=== PATIENT | male | born 1945 | race Caucasian/White ===

== ENCOUNTER 2023-09-25 13:46 | Emergency (ER) | payer MEDICARE, BC, OTHER, SELFPAY ==
[2023-09-25] VITALS (7 sets, daily range): BP systolic 120–131; BP diastolic 69–87; BMI 23.7
[2023-09-25 14:31] LABS: % Immature Granulocytes 0.7 % (0-0.5); % Lymphocytes 13.2 % (20.5-51.1); % Monocytes 14.1 % (1.7-9.3); Absolute Basophils 0.1 10^3/uL (0-0.2); Absolute Eosinophils 0.2 10^3/uL (0-0.7); Absolute Immature Granulocytes 0.1 10^3/uL (0-0.05); Absolute Lymphocytes 1.1 10^3/uL (1.2-3.4); Absolute Monocytes 1.2 10^3/uL (0.1-0.6); Absolute Neutrophils 5.8 10^3/uL (1.4-6.5); Hemoglobin 12.8 g/dL (13.0-18.0); Mean Corp Hgb Conc. 33.7 g/dL (33.0-37.0); Mean Corpuscular Volume 89.2 fL (80.0-94.0); Mean Platelet Volume 9.9 fL (7.4-10.4); Nucleated Red Blood Cells % 0 % (-); Platelet Count 250 10^3/uL (130-400); Red Blood Cell Count 4.26 10^6/uL (4.70-6.10); Red Cell Dist. Width 12.6 % (11.5-14.5); White Blood Cell Count 8.4 10^3/uL (4.8-10.8)
--- NOTE | 2023-09-25 14:41 | ED.GENMED ---
History of Present Illness
General
Chief Complaint: Weakness
Source: patient
Exam Limitations: none
Time Seen by Provider: 09/25/23 14:35
Travel History
Have you had any contact with someone who has COVID-19?: No
Do you have any symptoms of coronavirus? Fever > 100 degrees, chills, cough, shortness of breath, sore throat, loss of taste or smell, muscle aches, or headache?: No
History of Present Illness
History of Present Illness:
See MDM
Past History
Past History
ED Past Medical History: Other (Dementia, GERD, hyperlipidemia)
ED Past Surgical History: Other (agree with documented surgery)
Social History
Tobacco: Non-smoker
Personal:
Living: with family
Phy Exam
Physical Exam
Physical Exam:
See MDM
Course
Orders/Labs/Results
Orders:
Orders
09/25/23 14:06
Electrocardiogram (*1) Urgent
Reason for Study: Other
Other Reason for Exam: weakness
09/25/23 14:07
EKG- Treatment ONCE
09/25/23 14:09
Complete Blood Count/With Diff Urgent
Comprehensive Metabolic Panel Urgent
09/25/23 15:40
Urinalysis Reflex To Culture Urgent
Date Specimen was Collected: 09/25/23
Time Specimen was Collected: 15:39
Urine Microscopic Reflex Cult Urgent
09/25/23 17:25
Ciprofloxacin HCl [Cipro] 500 mg PO ONCE ONE
Abnormal Lab Results
09/25/23 09/25/23
14:09 15:40
RBC 4.26 L 10^6/uL
(4.70-6.10)
Hgb 12.8 L g/dL
(13.0-18.0)
Hct 38.0 L %
(39.0-52.0)
Abs Immat Gran (auto) 0.1 H 10^3/uL
(0-0.05)
Absolute Lymphs (auto) 1.1 L 10^3/uL
(1.2-3.4)
Absolute Monos (auto) 1.2 H 10^3/uL
(0.1-0.6)
Immature Gran % 0.7 H %
(0-0.5)
Lymphocytes % 13.2 L %
(20.5-51.1)
Monocytes % 14.1 H %
(1.7-9.3)
Leukocyte Esterase Rfl Trace A
(Negative)
Urine RBC 3-6 A /HPF
(0-2)
Urine Bacteria (Reflex) Few A
(Negative)
09/25/23 14:09
09/25/23 14:09
Vital Signs
Initial and Last Documented VS:
Initial Vital Signs
Temp Pulse Resp BP Pulse Ox
98.0 F 72 18 120/69 98
09/25/23 13:50 09/25/23 13:50 09/25/23 13:50 09/25/23 13:50 09/25/23 13:50
Last Documented Vital Signs
Temp Pulse Resp BP Pulse Ox
98.0 F 62 18 120/69 98
09/25/23 13:50 09/25/23 16:15 09/25/23 16:15 09/25/23 16:00 09/25/23 13:50
MDM/Problems Addressed
Differential Diagnosis Includes:
HPI and MDM Narrative:
77-year-old male presenting for evaluation of generalized weakness. Patient states that he noticed it last night. He states he felt weak and tired. He denies cough, shortness of breath or urinary symptoms. He denies headache. Denies fevers
On exam, he is well-appearing nontoxic. No rash noted. Abdomen soft and nontender. Lungs clear. Will obtain basic blood work and urinalysis
Physical exam
General: Well appearing and non-toxic
HEENT: protecting airway
Neck: supple
CV: No evidence of cyanosis. Regular rate and rhythm
Resp: No accessory muscle use. Lungs clear
Abd: Non-distended. Soft and nontender
Extremities: No deformities. No leg edema
Neuro: alert
Psych: Normal affect
Skin: Intact
Problems Addressed including Acute and Chronic Conditions affecting care:
1. Generalized weakness
Acuity: acute
Prognosis: stable
Details: Will obtain basic blood work and urinalysis.
Updates
at bedside. She is concerned about possible UTI. I discussed that there is bacteria in the urine. Given his symptoms, will treat with Cipro
Differential Diagnosis (but not limited to): UTI, metabolic encephalopathy, viral syndrome
Testing considered: CT head
Drug therapy (if applicable): OTC meds, please see d/c instruction regarding Rx drugs
Amount and/or Complexity of Data Reviewed
Clinical info obtained from: Patient and
External data reviewed: N/A
Labs I independently reviewed (but not limited to): White blood cell count normal
Radiology: N/A
Pulse Ox: not hypoxic
EKG independently reviewed: N/A
Licensed Practical Vocational Nurse: N/A
Critical Care: N/A
Risk of Complication:
Social Determinants of health: Good social support
Discussed with other providers: N/A
Escalation of Care includes Admit/Obs: After being observed in the Emergency Department, pt stable for discharge.
Occasional wrong word or 'sound a like' substitutions may have occurred due to the inherent limitations of voice recognition software. Read the chart carefully and recognize, using context, where substitutions have occurred.
*Critical Care Note
Total Time (30-74mins, 75-104mins- exclusive of procedures): Not Applicable
ED Attending Note
-
Portions of this chart may have been created with voice recognition software.� Occasional wrong word or��sound alike� substitutions may have occurred due to the inherent limitations of voice recognition software.
Discharge Plan
Departure
Patient Disposition: Home (Routine Discharge)
Date of Disposition: 09/25/23
Time of Disposition: 17:26
Patient with high blood pressure during this ER visit?: No
Discharge Problem:
Acute UTI
Instructions: Acute Cystitis (DC)
Prescriptions:
New
ciprofloxacin HCl [Cipro] 500 mg tablet
500 mg PO BID Qty: 14 0RF
No Action
famotidine [Pepcid] 40 mg Tablet
40 mg PO HS
loratadine [Claritin] 10 mg Tablet
10 mg PO DAILY
febuxostat [Uloric] 40 mg Tablet
40 mg PO DAILY
Namzaric 28-10 mg Capsule,Sprinkle,Er 24hr
1 cap PO HS
cyanocobalamin (vitamin B-12) 500 mcg Tablet
500 mcg PO DAILY
tamsulosin 0.4 mg capsule
0.4 mg PO HS
aspirin 81 mg Tablet,Delayed Release (Dr/Ec)
81 mg PO HS
quetiapine 25 mg Tablet
25 mg PO DAILY
acetaminophen [Tylenol] 325 mg Tablet
650 mg PO Q6H PRN (Reason: mild pain/fever)
quetiapine 100 mg Tablet
100 mg PO HS
acetaminophen [Tylenol Extra Strength] 500 mg Tablet
1,000 mg PO DAILYPRN PRN (Reason: mild pain/fever)
lorazepam 0.5 mg Tablet
0.5 mg PO Q8HPRN PRN (Reason: ANXIETY)
metoprolol tartrate 25 mg tablet
12.5 mg PO BID@0900,2100
Referrals:
Long Polanco MD [Family Provider] -
Activity Restrictions/Additional Instructions:
Please return for any worsening symptoms.
You may return at any time if you have further concerns.
Please follow up with your doctor at the first available appointment, preferably this week.
Thank you for choosing [facility].
Interventions
Interventions:
*Risk Screen - Suicide Last Done: 09/25/23 13:50
*Neglect/Abuse Screening Last Done: 09/25/23 13:50
ED- Cardiac Assessment Last Done: 09/25/23 14:10
ED- Neurological Assessment Last Done: 09/25/23 14:10
ED- Pulmonary Assessment Last Done: 09/25/23 14:10
[2023-09-25 14:52] LABS: ALT (SGPT) 37 U/L (0-50); AST (SGOT) 26 U/L (17-59); Albumin 3.8 g/dl (3.5-5.0); Alkaline Phosphatase 90 U/L (38-126); Blood Urea Nitrogen 14 mg/dl (9-20); Calcium 8.8 mg/dl (8.4-10.2); Carbon Dioxide 28 mmol/L (22-30); Chloride 103 mmol/L (98-107); Estimated Creatinine Clearance 62 ml/min; Glucose 79 mg/dl (70-99); Potassium 4.3 mmol/L (3.5-5.1); Sodium 137 mmol/L (135-145); Total Bilirubin 1.2 mg/dl (0.2-1.3); Total Protein 6.7 g/dl (6.3-8.2); eGFR > 60.00
[2023-09-25 15:48] LABS: Urine Albumin Negative (Neg - Trace); Urine Bilirubin Negative (Negative); Urine Character Clear (Clear); Urine Color Yellow; Urine Glucose Negative (Negative); Urine Ketone Negative (Negative); Urine Leukocyte Trace (Negative); Urine Nitrite Negative (Negative); Urine Occult Blood Negative (Negative); Urine Specific Gravity 1.015 (<1.030); Urine Urobilinogen 1+ (Neg - 1+)
[2023-09-25 15:56] LABS: Urine Bacteria Few (Negative)
[2023-09-25] MEDS: CIPRO 500 MG PO (17:32)
== END 2023-09-25 19:50 | disposition home or self-care (01) ==
LOC: EMR 13:46
PROVIDERS: Emergency Medicine; EMERGENCY PHYSICIAN Student in an Organized Health Care Education/Training Program; FAMILY PHYSICIAN Family Medicine
DX: N39.0 Urinary tract infection, site not specified (principal)
CPT/HCPCS: 99284; 80053; 81003; 81015; 85025; 93005

== ENCOUNTER 2023-11-03 14:29 | Inpatient (IN) | payer MEDICARE, BC, OTHER, SELFPAY ==
[2023-11-01] VITALS (9 sets, daily range): BP systolic 113–147; BP diastolic 71–97; BMI 22.9
--- NOTE | 2023-11-01 13:05 | ED.GENMED ---
History of Present Illness
<Kiana Schultz PA-C - Last Filed: 11/01/23 20:16>
General
Chief Complaint: Weakness
Source: patient and ambulance crew
Exam Limitations: none
Time Seen by Provider: 11/01/23 13:04
Nursing documentation reviewed up to this point in time: agreed with
History of Present Illness
History of Present Illness:
77 y/o male with a PMH of Alzheimer's disease, dementia, hyperlipidemia, hypertension presenting emergency department today with concerns of 'talking less ' via EMS. Patient unsure why he is here. Patient is coming from [facility] mcc and
mcc reports that he has been less talkative than usual and has increasingly required more assistance with ambulation. Patient denies chest pain, shortness of breath, feeling sick, nausea/vomiting, diarrhea, abdominal pain. Patient has no
response when asked about dysuria or headache.
3:40 pm-- Spoke to medical associate from patient's m[facility] at [facility], reports that patient, although demented at baseline, normally has speech that is easy to understand but today he had moments of unintelligible speech and more confusion than
baseline. They also report that patient has been complaining of pain when he stands.
Past History
<Kiana Schultz PA-C - Last Filed: 11/01/23 20:16>
Past History
ED Past Medical History: Other (Dementia, GERD, hyperlipidemia)
ED Past Surgical History: Other (agree with documented surgery)
Social History
Tobacco: Non-smoker
Personal:
Living: with family
Review of Systems
<Kiana Schultz PA-C - Last Filed: 11/01/23 20:16>
Review of Systems
All Other Systems: ROS reviewed and negative except as documented in HPI and ROS
Phy Exam
<Kiana Schultz PA-C - Last Filed: 11/01/23 20:16>
Physical Exam
Physical Exam:
General: Patient is in no acute distress
Skin: Warm, dry, and intact without rashes or lesions.
Head: normocephalic. atraumatic
Cardiac: RRR with no murmurs, rubs, or gallops.
PV: No clubbing/cyanosis/edema.
Pulmonary: Lung sounds are clear in all lobes bilaterally without rales, rhonchi, or wheezes.
Abdomen: Abdomen is soft, symmetric, and non-tender without distention. There are no visible lesions or scars.
Neuro: Patient is oriented to person but not place or time. Baseline mentation unknown. Patient will occasionally have slurring of speech and blank stares but than he will return to normal speech after a few minutes. CN II-XII intact. No focal
neurologic deficits.
Course
<Kiana Schultz PA-C - Last Filed: 11/01/23 20:16>
Orders/Labs/Results
Orders:
Orders
11/01/23 13:05
EKG [Electrocardiogram (*1)] Urgent
Reason for Study: Chest Pain
EKG- Treatment ONCE
11/01/23 13:18
CT Head W/o Iv Contrast Urgent
Comment:
Reason For Exam: occasional speech slurring/AMS
11/01/23 13:32
Complete Blood Count/With Diff Urgent
Comprehensive Metabolic Panel Urgent
Troponin I Urgent
11/01/23 15:24
Urinalysis Reflex To Culture Urgent
Date Specimen was Collected: 11/01/23
Time Specimen was Collected: 13:14
Urine Microscopic Reflex Cult Urgent
11/01/23 16:18
CT Cervical Spine W/o Iv Contr Urgent
Comment:
Reason For Exam: fall, head strike
CT Head W/o Iv Contrast Urgent
Comment:
Reason For Exam: fall, head strike
11/01/23 18:03
Admit/Transfer Patient As Directed
Co-Sign Provider:
Level of Care: Observation services
Assign to:: Telemetry
Physician / Group: Charmaine
Diagnosis: TIA
Reason for Telemetry: CVA/TIA
Date to Stop Telemetry: 11/04/23
Time to Stop Telemetry: 11:00
11/01/23 18:11
Code Status As Directed
Resuscitation Status: Full Code
11/01/23 18:52
One to One Observation - Suicide/Violent [1:1 Observation - Suicide/ Violent Behavior] As Directed
11/01/23 20:00
Acetaminophen [Tylenol/Feverall] 650 mg RECTAL Q4HPRN PRN
Acetaminophen [Tylenol] 650 mg PO Q4HPRN PRN
Lorazepam [Ativan] 0.5 mg PO Q8HPRN PRN
11/01/23 20:00
Case Management Consult ONCE
Case Management Consult: Discharge Planning
Comment: stroke/tia
DIETARY CONSULT Routine
Reason for Consult: stroke/TIA
NEUROLOGY CONSULT Urgent
Consulting Provider: Joe Mota
Was physician already notified: Yes
Reason for consult: confusion and speech distrubance
Surfacer Operator Urgent
Glycohemoglobin (HgbA1c) Routine
Activity As Directed
Activity Level: Out of Bed-Early Mobility
NIH Stroke Scale As Directed
Directions: Per protocol
Comment: every shift and with any change in condition or mental status
Neurological Checks As Directed
Frequency: q4h
Additional Instructions:: q4h x 24h upon admission to the floor, then qshift & with any change in condition
and mental status
Patient Education As Directed
Type: Stroke education packet
Comment: provide to patient and family
Precautions As Directed
Type of Precautions: Aspiration
Comment: fall precaution
Swallow Screening CVA/TIA ONLY As Directed
Comment: NPO until swallowing screening completed
If patient FAILS swallow screening:: NPO, Speech Therapy consult, Aspiration Precautions
If patient PASSES swallow screening, diet:: Cholesterol Lowering
Vital Signs As Directed
Frequency: Per unit guidelines
Ot Eval And Treat Routine
Pt Eval And Treat Routine
Activity Level: Out of Bed-Early Mobility
Speech Therapy Eval & Treat Routine
DX Deep Vein Thrombosis Video Routine
11/01/23 21:00
Troponin I Q6H
Metoprolol [Lopressor] 12.5 mg PO BID@0900,2100
11/01/23 22:00
Aspirin Low Dose EC [Aspir Low (Enteric Coated)] 81 mg PO HS
Famotidine [Pepcid] 40 mg PO HS
Quetiapine Fumarate [Seroquel] 100 mg PO HS
Tamsulosin [Flomax] 0.4 mg PO HS
memantine-donepezil [Namzaric] 1 cap PO HS
11/02/23 03:00
Troponin I Q6H
11/02/23 06:00
Basic Metabolic Panel IN AM
Cardiovascular Evaluation IN AM
Complete Blood Count/No Diff IN AM
11/02/23 08:00
Quetiapine Fumarate [Seroquel] 25 mg PO DAILY
febuxostat [Uloric] 40 mg PO DAILY
11/02/23 18:00
Atorvastatin [Lipitor] 40 mg PO QPM
Enoxaparin Sodium [Lovenox] 40 mg SC QPM
11/04/23 11:00
DC Protocol for Telemetry ONCE
Abnormal Lab Results
11/01/23 11/01/23
13:32 15:24
RBC 4.38 L 10^6/uL
(4.70-6.10)
Hgb 12.9 L g/dL
(13.0-18.0)
Hct 37.8 L %
(39.0-52.0)
Absolute Lymphs (auto) 1.1 L 10^3/uL
(1.2-3.4)
Absolute Monos (auto) 0.7 H 10^3/uL
(0.1-0.6)
Lymphocytes % 15.5 L %
(20.5-51.1)
Eosinophils % 7.4 H %
(0-6)
Total Bilirubin 1.6 H mg/dl
(0.2-1.3)
Leukocyte Esterase Rfl Trace A
(Negative)
11/01/23 13:32
11/01/23 13:32
Vital Signs
Initial and Last Documented VS:
Initial Vital Signs
Temp
97.7 F
11/01/23 13:06
Last Documented Vital Signs
Temp Pulse Resp BP Pulse Ox
97.7 F 74 19 134/74 98
11/01/23 13:06 11/01/23 19:00 11/01/23 19:00 11/01/23 19:00 11/01/23 19:00
<[place], DO - Last Filed: 11/01/23 13:24>
Orders/Labs/Results
Orders:
Orders
11/01/23 13:05
EKG [Electrocardiogram (*1)] Urgent
Reason for Study: Chest Pain
EKG- Treatment ONCE
11/01/23 13:18
CT Head W/o Iv Contrast Urgent
Comment:
Reason For Exam: occasional speech slurring/AMS
11/01/23 13:32
Complete Blood Count/With Diff Urgent
Comprehensive Metabolic Panel Urgent
Troponin I Urgent
11/01/23 15:24
Urinalysis Reflex To Culture Urgent
Date Specimen was Collected: 11/01/23
Time Specimen was Collected: 13:14
Urine Microscopic Reflex Cult Urgent
11/01/23 16:18
CT Cervical Spine W/o Iv Contr Urgent
Comment:
Reason For Exam: fall, head strike
CT Head W/o Iv Contrast Urgent
Comment:
Reason For Exam: fall, head strike
11/01/23 18:03
Admit/Transfer Patient As Directed
Co-Sign Provider:
Level of Care: Observation services
Assign to:: Telemetry
Physician / Group: Charmaine
Diagnosis: TIA
Reason for Telemetry: CVA/TIA
Date to Stop Telemetry: 11/04/23
Time to Stop Telemetry: 11:00
11/01/23 18:11
Code Status As Directed
Resuscitation Status: Full Code
11/01/23 18:52
One to One Observation - Suicide/Violent [1:1 Observation - Suicide/ Violent Behavior] As Directed
11/01/23 20:00
Acetaminophen [Tylenol/Feverall] 650 mg RECTAL Q4HPRN PRN
Acetaminophen [Tylenol] 650 mg PO Q4HPRN PRN
Lorazepam [Ativan] 0.5 mg PO Q8HPRN PRN
11/01/23 20:00
Case Management Consult ONCE
Case Management Consult: Discharge Planning
Comment: stroke/tia
DIETARY CONSULT Routine
Reason for Consult: stroke/TIA
NEUROLOGY CONSULT Urgent
Consulting Provider: Joe Mota
Was physician already notified: Yes
Reason for consult: confusion and speech distrubance
Surfacer Operator Urgent
Glycohemoglobin (HgbA1c) Routine
Activity As Directed
Activity Level: Out of Bed-Early Mobility
NIH Stroke Scale As Directed
Directions: Per protocol
Comment: every shift and with any change in condition or mental status
Neurological Checks As Directed
Frequency: q4h
Additional Instructions:: q4h x 24h upon admission to the floor, then qshift & with any change in condition
and mental status
Patient Education As Directed
Type: Stroke education packet
Comment: provide to patient and family
Precautions As Directed
Type of Precautions: Aspiration
Comment: fall precaution
Swallow Screening CVA/TIA ONLY As Directed
Comment: NPO until swallowing screening completed
If patient FAILS swallow screening:: NPO, Speech Therapy consult, Aspiration Precautions
If patient PASSES swallow screening, diet:: Cholesterol Lowering
Vital Signs As Directed
Frequency: Per unit guidelines
Ot Eval And Treat Routine
Pt Eval And Treat Routine
Activity Level: Out of Bed-Early Mobility
Speech Therapy Eval & Treat Routine
DX Deep Vein Thrombosis Video Routine
11/01/23 21:00
Troponin I Q6H
Metoprolol [Lopressor] 12.5 mg PO BID@0900,2100
11/01/23 22:00
Aspirin Low Dose EC [Aspir Low (Enteric Coated)] 81 mg PO HS
Famotidine [Pepcid] 40 mg PO HS
Quetiapine Fumarate [Seroquel] 100 mg PO HS
Tamsulosin [Flomax] 0.4 mg PO HS
memantine-donepezil [Namzaric] 1 cap PO HS
11/02/23 03:00
Troponin I Q6H
11/02/23 06:00
Basic Metabolic Panel IN AM
Cardiovascular Evaluation IN AM
Complete Blood Count/No Diff IN AM
11/02/23 08:00
Quetiapine Fumarate [Seroquel] 25 mg PO DAILY
febuxostat [Uloric] 40 mg PO DAILY
11/02/23 18:00
Atorvastatin [Lipitor] 40 mg PO QPM
Enoxaparin Sodium [Lovenox] 40 mg SC QPM
11/04/23 11:00
DC Protocol for Telemetry ONCE
Abnormal Lab Results
11/01/23 11/01/23
13:32 15:24
RBC 4.38 L 10^6/uL
(4.70-6.10)
Hgb 12.9 L g/dL
(13.0-18.0)
Hct 37.8 L %
(39.0-52.0)
Absolute Lymphs (auto) 1.1 L 10^3/uL
(1.2-3.4)
Absolute Monos (auto) 0.7 H 10^3/uL
(0.1-0.6)
Lymphocytes % 15.5 L %
(20.5-51.1)
Eosinophils % 7.4 H %
(0-6)
Total Bilirubin 1.6 H mg/dl
(0.2-1.3)
Leukocyte Esterase Rfl Trace A
(Negative)
11/01/23 13:32
11/01/23 13:32
Vital Signs
Initial and Last Documented VS:
Initial Vital Signs
Temp
97.7 F
11/01/23 13:06
Last Documented Vital Signs
Temp Pulse Resp BP Pulse Ox
97.7 F 74 19 134/74 98
11/01/23 13:06 11/01/23 19:00 11/01/23 19:00 11/01/23 19:00 11/01/23 19:00
Procedures
<Kiana Schultz PA-C - Last Filed: 11/01/23 20:16>
Laceration Closure
Left Forehead:
Status of Wound: clean
Size of Wound in cm: 3.5
Description of Wound Edges: sharp
Preparation: cleaned with saline
Anesthesia: 1% Lidocaine with epi
Revision/Debridement: routine- no revision
Wound exploration: explored to base- no FB
Type of Closure: single layer closure
Skin Closure Material: 5-0 prolene
Number of sutures: 5
<NILDA Larsen Last Filed: 11/01/23 20:16>
MDM/Problems Addressed
Differential Diagnosis Includes:
ddx include electrolyte derangement, alzheimer's dementia, TIA, UTI
MDM/Problems Addressed:
altered mental status
Chronic conditions affecting care: HTN and Neurological disorder
Acute Exacerbation and/or Progression of Chronic Illness: Neurological disorder
<Kiana Schultz PA-C - Last Filed: 11/01/23 20:16>
*Pulse Oximetry
Patient hypoxic: no
*Critical Care Note
Total Time (30-74mins, 75-104mins- exclusive of procedures): Not Applicable
<Kiana Schultz PA-C - Last Filed: 11/01/23 20:16>
Patient Management
Escalation/DeEscalation of care consider admission/obs:
77 y/o male with PMH of HLP, HTN, alzheimer's dementia presenting to the ER today via EMS for change in mental status. Spoke to mcc who reports that patient is normally much more clear with his speech and today had episodes of speech
slurring and more confusion than baseline. On my exam, I witnessed the speech slurring, he would also occasionally stop responding and occasionally have a blank stare. CT head negative. Now patient appears to have more clear speech and is improved
from earlier. Will admit for TIA workup. Patient accepted by hospitalist
<NILDA Larsen Last Filed: 11/01/23 20:16>
Update Note
Update Note:
4:30 pm-- I was alerted that patient fell out of his bed and hit his head on the floor. Patient endured a 3.5 cm laceration on the left side of his forehead. Patient denies headache/neck pain at this time. Patient spontaneously moving cervical
spine. No tenderness to palpation of cervical spine.
ED Attending Note
<Kiana Schultz PA-C - Last Filed: 03/10/24 20:16>
-
Portions of this chart may have been created with voice recognition software.� Occasional wrong word or��sound alike� substitutions may have occurred due to the inherent limitations of voice recognition software.
<[place], DO - Last Filed: 11/01/23 13:24>
ED Attending Note
Patient seen and examined by attending physician: Yes
I performed the substantive portion of visit, reviewed & personally made and approve the management plan that is documented in note by myself or ANGEL.: Yes
ED Attending Note:
I have seen and evaluated the patient with a [id number] encounter. I have spoken to the advance practicer provider and involved in the medical history, the physical exam, medical decision making.
Evaluation and management service: agree unless noted differently below.
Results interpretation: agree unless noted differently below.
Focused HPI: 77-year-old male presenting for evaluation of increased weakness. Per EMS, mcc was concerned that his speech was off
Physical exam: Weak and fatigued. No aphasia or dysarthria noted. No focal deficits
Medical Decision Making: Patient has baseline dementia. Given the story, will obtain CT head and basic blood work. There is no focal neurodeficits. He is globally weak
Discharge Plan
Departure
Patient Disposition: Admit
Date of Disposition: 11/01/23
Time of Disposition: 17:33
Admit to: Med/Surg
Presentation/result/management discussed w/ accepting MD/DO: Hospitalist
Condition: Fair
Discharge Problem:
Slurring of speech, Acute alteration in mental status
Interventions
Interventions:
*Risk Screen - Suicide Last Done: 11/01/23 19:30
*General Assessment Last Done: 11/01/23 19:30
*Neglect/Abuse Screening Last Done: 11/01/23 19:30
ED- Fall Risk Assessment Last Done: 11/01/23 17:00
*ED COVID-19 Vaccine History Last Done: 11/01/23 19:30
*Nursing Disposition Last Done: 11/01/23 19:31
ED- Cardiac Assessment Last Done: 11/01/23 14:57
ED- Neurological Assessment Last Done: 11/01/23 14:57
ED- Pulmonary Assessment Last Done: 11/01/23 14:57
Discharge Date and Time
Discharge Date/Time: 11/01/23 19:55
[2023-11-01 13:43] LABS: % Basophils 0.7 % (0-2); % Eosinophils 7.4 % (0-6); % Immature Granulocytes 0.3 % (0-0.5); % Lymphocytes 15.5 % (20.5-51.1); % Monocytes 9.3 % (1.7-9.3); % Neutrophils 66.8 % (42.2-75.2); Absolute Basophils 0.1 10^3/uL (0-0.2); Absolute Eosinophils 0.5 10^3/uL (0-0.7); Absolute Lymphocytes 1.1 10^3/uL (1.2-3.4); Absolute Monocytes 0.7 10^3/uL (0.1-0.6); Absolute Neutrophils 4.8 10^3/uL (1.4-6.5); Hematocrit 37.8 % (39.0-52.0); Hemoglobin 12.9 g/dL (13.0-18.0); Mean Corp Hgb Conc. 34.1 g/dL (33.0-37.0); Mean Corpuscular Hgb 29.5 pg (27.0-31.0); Mean Corpuscular Volume 86.3 fL (80.0-94.0); Nucleated Red Blood Cells % 0 % (-); Platelet Count 151 10^3/uL (130-400); Red Blood Cell Count 4.38 10^6/uL (4.70-6.10); White Blood Cell Count 7.2 10^3/uL (4.8-10.8)
[2023-11-01 13:56] LABS: ALT (SGPT) 21 U/L (0-50); AST (SGOT) 41 U/L (17-59); Albumin 3.8 g/dl (3.5-5.0); Alkaline Phosphatase 106 U/L (38-126); Blood Urea Nitrogen 9 mg/dl (9-20); Calcium 9.2 mg/dl (8.4-10.2); Carbon Dioxide 29 mmol/L (22-30); Chloride 106 mmol/L (98-107); Glucose 99 mg/dl (70-99); Potassium 3.8 mmol/L (3.5-5.1); Sodium 138 mmol/L (135-145); Total Bilirubin 1.6 mg/dl (0.2-1.3); Total Protein 6.4 g/dl (6.3-8.2); eGFR > 60.00
[2023-11-01 14:06] LABS: Troponin I < 0.012 ng/ml
[2023-11-01 15:35] LABS: Urine Albumin Negative (Neg - Trace); Urine Bilirubin Negative (Negative); Urine Character Clear (Clear); Urine Color Yellow; Urine Glucose Negative (Negative); Urine Ketone Negative (Negative); Urine Leukocyte Trace (Negative); Urine Nitrite Negative (Negative); Urine Occult Blood Negative (Negative); Urine Urobilinogen Negative (Neg - 1+)
[2023-11-01 15:42] LABS: Urine Red Blood Cell 0-2 /HPF (0-2)
--- NOTE | 2023-11-01 16:25 | EDRN ---
Pt was seen 5 mins TEST CARRIER fall by this RN and given applesauce. Pt has dry diaper on. Pt stretcher was in the lowest position, call [place] in reach, safe environment, yellow non-skid socks on, fall bracelet on. Pt it appeared to be trying to get out of
the bottom of the stretcher and got tangled in the bedsheet, fell backwards striking left side of his head sustaining lac (which later required 5 sutures). Pt found on floor. This RN, hot metal charger and Dr. Islas @ bedside immediately to get Pt back
into bed and eval Pt. Head and neck CT ordered.
--- NOTE | 2023-11-01 18:18 | HPS.HSE ---
Family Physician
-
Family Physician: Long Polanco
Chief Complaint
-
Dysarthria and worsening confusion
History of Present Illness
77-year-old male with history of advanced dementia, resident of [facility], sent to the hospital after he noticed he is more confused and less talkative than dysarthric earlier in the [facility].
According to the ER where they spoke to the [facility] staff usually is talkative but today they noticed she was less talkative and when he was talking he was dysarthric and more confused, by the time he was in the ER look like he is back to his
baseline but is extremely confused his answers not related to the question and does not follows commands and move all extremities
He is pleasant not in distress but extremely confused.
Disoriented to place, time but he knows his name.
CT brain showed no acute abnormality.
Look like he complained to the ER about pain when he stands or when asked about any pain or discomfort he denied it.
While he was in the ER apparently tried to climb out of the bed and fell and hit his left side of the forehead to the ground some skin laceration and repeat CAT scan showed no acute abnormality no intracranial hemorrhage but showed some small
hematoma.
Medical History
Past Medical History
Past Medical History: Reports Other
Additional Past Medical History:
Past medical history reviewed:
Dementia
Hypertension
Mood disorder
BPH
Social history: Cannot be obtained fully but he is a resident of the [facility] and no smoking alcohol
Family history: Cannot be obtained
Past Surgical History: Reports Other
Social History
Drug: Other
Employment: Other
Family History
Family History: Other
Allergies / Home Medications
Allergies reflects when Allergies were last updated in [employer].
Home Medications with original date entered in [employer]
Allergy/Medication List:
Allergies
Allergy/AdvReac Type Severity Reaction Status Date / Time
allopurinol [Allopurinol] Allergy Hives Verified 04/02/23 15:34
bee venom protein (honey bee) Allergy Hives Verified 04/02/23 15:34
prednisone AdvReac Nervous, Verified 04/02/23 15:34
anxious
Shellfish *RETIRED-05/11/12 AdvReac gout Verified 04/02/23 15:34
[Shellfish]
Home Medications
famotidine 40 mg tablet (Pepcid) 40 mg PO HS Gastrointestinal issue 11/11/22
febuxostat 40 mg tablet (Uloric) 40 mg PO DAILY Gout 11/11/22
loratadine 10 mg tablet (Claritin) 10 mg PO DAILY Allergies 11/11/22
memantine ER 28 mg-donepezil 10 mg capsule sprinkle,ext.release 24 hr (Namzaric) 1 cap PO HS MEMORY 11/11/22
aspirin 81 mg tablet,delayed release 81 mg PO HS Blood clot prevention/tx 12/05/22
cyanocobalamin (vitamin B-12) 500 mcg tablet 500 mcg PO DAILY Supplement 12/05/22
tamsulosin 0.4 mg capsule 0.4 mg PO HS 12/05/22
acetaminophen 325 mg tablet (Tylenol) 650 mg PO Q4HPRN PRN mild pain/fever 09/25/23
lorazepam 0.5 mg tablet 0.5 mg PO Q8HPRN PRN anxiety/restlessness 09/25/23
metoprolol tartrate 25 mg tablet 12.5 mg PO BID@0900,2100 09/25/23
quetiapine 100 mg tablet 100 mg PO HS 09/25/23
quetiapine 25 mg tablet 25 mg PO DAILY 09/25/23
calcium polycarbophil 625 mg tablet (FiberCon) 1,250 mg PO DAILY 11/01/23
epinephrine 0.3 mg/0.3 mL injection syringe 0.3 mg IM DAILY PRN allergies 11/01/23
Review of Systems
-
Unable to obtain full review of systems at this time due to: Dementia
Physical Exam
Vital Signs
Vital Signs
Temp Pulse Resp BP Pulse Ox
97.7 F 59 17 115/88 100
11/01/23 13:06 11/01/23 13:18 11/01/23 13:18 11/01/23 16:54 11/01/23 16:32
Physical exam:
General: Awake, alert and oriented x1, oriented to self only, pleasantly confused, moves extremities around, not in distress and does not answer all the questions sometimes answers not related to the questions..
HEENT: No active discharge, ecchymosis or bruising, moist lips, tongue and mucous membrane.
Eyes: No discharge or red conjunctiva, no nystagmus, pupils are reactive and equal
Neck:Supple, no JVD no bruit no goiter.
Respiratory: Normal AP contour and diameter, normal chest wall movement, normal respiratory effort, no respiratory distress,
Lungs: Good air entry bilaterally, no wheezing or rhonchi, no rales or crackles
Heart: S1, S2 regular, normal rate, no added sound.
Gastrointestinal: Positive bowel sounds, soft, nontender, no guarding or rigidity or organomegaly
Skin: Warm and dry, no ulceration, normal color.
Neurological: Awake, alert and oriented x1, advanced cognitive dysfunction appreciated, moves extremities freely and purposelessly, does not follows command fully.,
Psychiatric: Normal mood, abnormal thought and judgment, normal affect,
Physical Exam
General: Other
Laboratory Results
-
11/01/23 13:32
11/01/23 13:32
Laboratory Results
Total Bilirubin 1.6 mg/dl (0.2-1.3) H 11/01/23 13:32
AST 41 U/L (17-59) 11/01/23 13:32
ALT 21 U/L (0-50) 11/01/23 13:32
Alkaline Phosphatase 106 U/L (38-126) 11/01/23 13:32
Troponin I < 0.012 ng/ml 11/01/23 13:32
CT brain:
Lateral left frontal superficial scalp soft tissue swelling/contusion. No skull fracture.
Otherwise stable. No acute intracranial hemorrhage. No extra-axial collection
CT cervical spine:
No fracture. No prevertebral soft tissue swelling. Normal vertebral stature. Degenerative narrowing, sclerosis, and joint margin osteophyte formation between the odontoid process and the anterior arch of C1. Advanced degenerative disc disease from
C5 through C7. Multilevel bilateral facet arthrosis, with narrowing, sclerosis, and hypertrophy, right greater than left. There is associated uncinate hypertrophy.
EKG showed normal sinus rhythm rate around 60, MI 160, QTc 426, left axis deviation otherwise no acute abnormalities
Data Reviewed
-
Diagnostic Radiology: Report Reviewed by me
Medical Tests (Nuc Med, Echo, EKG etc): Report Reviewed by me
Lab Data: Labs Reviewed by me
Old Records: Reviewed
Impression/Plan
-
IMPRESSION:
77-year-old male sent from [facility] for evaluation of speech change and worsening confusion with known history of advanced dementia, currently speech clear but extremely confused and move extremities around. Denies any particular
complaint.
Worsening confusion, stroke today could be a possibility, no evidence of infection, while the worsening dementia could be a possibility.
Dysarthria: Resolved and weakness.
Fall in the ER is is confused tragically monitor bed
Advanced dementia
Hypertension
Mood disorder
PLAN:
Cardiac monitoring
Get a PT OT and swallowing eval
Hold on further imaging specially MRI would be very hard for him to stay still on the MRI and follows command as he is not.
Neurology consult
Continue aspirin and statin
Check lipid panel, A1c
Pulm on one-to-one assist at risk for fall as tolerated in the ER.
Continue Seroquel and quetiapine
UA did not show any evidence of infection heart archive reviewed
CODE STATUS full code
DVT prophylaxis Lovenox
[2023-11-01 21:56] LABS: Troponin I < 0.012 ng/ml
[2023-11-01] MEDS: LOPRESSOR 12.5 MG PO (22:01)
[2023-11-01] MEDS: FLOMAX 0.400000000000000022 MG PO (22:03)
[2023-11-01] MEDS: NAMENDA XR 28 MG PO (22:03)
[2023-11-01] MEDS: ARICEPT 10 MG PO (22:03)
[2023-11-01] MEDS: ASPIR LOW (ENTERIC COATED) 81 MG PO (22:03)
[2023-11-01] MEDS: PEPCID 40 MG PO (22:04)
[2023-11-01] MEDS: SEROQUEL 100 MG PO (22:04)
--- NOTE | 2023-11-02 02:03 | W.PN.UPDATE ---
Update Note
Progress Note Update
pt has not made any attempts to get oob.
will dc 1:1 order for now
Bed alarm and med sitter recommended and conveyed to RN
If pt attempts to climb oob- will need to make 1:1 as pt high fall risk with fall already occuring in ED.
--- NOTE | 2023-11-02 02:29 | PTCARENOTE ---
Discussed with OPAL POLISHER Sangeeta Shnae that patient is not suicidal, he has dementia. Asked if ok to place patient on a med sitter and a bed alarm rather than a 1:1 as patient has made no attempts at this time to get out of the bed . Sangeeta CORTEZ agreeable
to trying a Med sitter and a bed alarm, and if needed a kilo chair. Patient is in room at this blake resting comfortable with the bed alarm on and the Med sitter. the 1:1 has been cancelled at this time . Will continue to Monitor.
--- NOTE | 2023-11-02 02:33 | PTCARENOTE ---
2010: Pt from ED AAAO X1 . Patient transferred from stretcher to bed with assist. Vital signs taken. Patient assessed. Patient is confused and unable to answer questions for follow simple commands for RN. pt oriented to room and POC will continue
to monitor and assess.
[2023-11-02 03:15] LABS: Hemoglobin 12.8 g/dL (13.0-18.0); Mean Corp Hgb Conc. 34.6 g/dL (33.0-37.0); Mean Corpuscular Hgb 29.6 pg (27.0-31.0); Mean Corpuscular Volume 85.5 fL (80.0-94.0); Platelet Count 142 10^3/uL (130-400); Red Blood Cell Count 4.33 10^6/uL (4.70-6.10); Red Cell Dist. Width 13.9 % (11.5-14.5)
[2023-11-02 03:30] LABS: Blood Urea Nitrogen 10 mg/dl (9-20); Calcium 9.2 mg/dl (8.4-10.2); Carbon Dioxide 27 mmol/L (22-30); Chloride 106 mmol/L (98-107); Estimated Creatinine Clearance 61 ml/min; Glucose 93 mg/dl (70-99); HDL Cholesterol 41 mg/dl; LDL Cholesterol, Calculated 126 mg/dl; Potassium 3.6 mmol/L (3.5-5.1); Sodium 138 mmol/L (135-145); Total Cholesterol 184 mg/dl (50-199); Triglyceride 85 mg/dl (10-149); Very Low Density Lipoprotein 17 mg/dl (0-30); eGFR > 60.00
[2023-11-02 03:34] LABS: Troponin I < 0.012 ng/ml
[2023-11-02 03:58] VITALS: BP 160/80
[2023-11-02 06:00] VITALS: BMI 22.9
[2023-11-02 08:00] VITALS: BP 126/95
--- NOTE | 2023-11-02 08:05 | CON.NEURO4 ---
Addendum entered and electronically signed by Daniele Fishman MD 11/02/23 15:50:
I saw and evaluated the patient I reviewed the note by Amanda Haley agree the findings the following comments:
77-year-old male with a past medical history of dementia which is most likely Alzheimer's, migraines presents to hospital with worsening mental status and speech abnormalities. Patient not able to give any significant further history due to
agitation and mental status.
Patient is maintained on aspirin 81 mg daily. He also takes quetiapine usually 100 mg at night. No fevers or leukocytosis or abnormal urinalysis kidney or liver function here in the hospital.
Neurologic examination shows an awake patient who is uncooperative, face is symmetric with minimal dysarthria resting gaze midline extraocular's are normal he does track the examiner to the room. Spontaneous movements as well as brief motor
examination shows no motor asymmetry.
CT head noncontrast and CT cervical spine reviewed with a left frontal superficial scalp swelling/contusion but no fractures of the spine.
Assessment: Most likely this is advancing Alzheimer's disease with some mild amounts of behavioral agitation. No significant metabolic abnormalities observed. Does not appear that his medication regimen would be contributing to agitation. Less
likely that this is an acute ischemic stroke without any localizing or focal neurologic deficit and brain MRI would not change our management if there were small stroke seen.
Recommendations
-Continue the quetiapine 100 mg at night, would increase to 50 mg during the day. Uptitrate slowly monitoring for excessive drowsiness based on agitation
-Minimize any sedating medications
--- Would avoid benzodiazepines and instead would prefer olanzapine as a as needed if he has significant agitation did needs quick action
-Aspiration precautions
-Not recommending any further neurologic imaging
Original Note:
Consultation - Neurology 4
-
CONSULTING PHYSICIAN: Janel Fishman MD
REFERRING PHYSICIAN: Hospitalists/Dr. Montano
DICTATED BY: DICKSON Ceron
DATE/TIME OF REQUEST: 11/01/23
DATE/TIME OF CONSULTATION: 11/02/23
Reason for Consultation: Change in mental status
History of Present Illness:
This is a 77-year-old male with a PMH of dementia with sleep disturbance (namzaric) and migraines who has presented to the hospital from [facility] with report of 'talking less,' worsened confusion, and requiring increased assistance with
ADLs. Patient has been previously evaluated by our inpatient Neurology service several times in the past for speech changes and change in mental status. He is followed by Neurology Dr. Martines as an outpatient.
From my previous evaluation on 12/08/22:
'This is a 76-year-old right-handed male who has presented to the hospital with report of headache and gait dysfunction. Patient was evaluated in the ER previously on 12/05/22 as a Stroke Alert when he presented from home with report of severe
headache, photophobia, increased confused, slurred speech, and weakness. His CT head on 12/05/22 did not demonstrate any acute findings, and at the time of presentation he was back to his baseline. He was discharged back to home on his usual aspirin
81mg and Namzaric, and his transient symptoms were attributed to worsening dementia.
Yesterday (12/07/22), he presented to the ER again with report of having another headache, some body shaking, a 'glazed' look, and gait dysfunction. On arrival here once again, he was back to his baseline. Currently, he denies any headache but his
nurse reports she just gave him prochlorperazine because he reported a headache earlier today. He denies any vision changes, nausea, photo/phonophobia, dizziness, swallowing difficulty, numbness, weakness, chest pain, shortness of breath, and
palpitations.'
In the ER, patient was restless/confused and had a fall after climbing out of bed. CT head was obtained and demonstrates a lateral left frontal superficial scalp contusion. CT cervical spine was obtained and is negative for fracture but
demonstrates C1, C5-C7 degenerative narrowing. Currently, patient is drowsy, confused, and mildly agitated with examination. Speaking fluently. He denies any headache, dizziness, vision changes, speech/swallow difficulty, numbness, weakness, chest
pain, palpitations, and shortness of breath.
Past Medical History: Dementia, sleep disturbance, HLD, GERD, gout, migraines, shingles, BPH, mood disorder
Surgical History: Appendectomy, tonsillectomy, adenoidectomy, herniorrhaphy, knee arthroscopy
Family History: Mother- dementia. Father- Brain tumor.
Social History: Former tobacco and alcohol.
Allergies: Allopurinol, prednisone, shellfish, bee venom.
Home Medications: See below.
Review of Symptoms:
Per the HPI. I am unable to obtain a complete review of systems�because of patient's inability to provide history.
Physical Exam:
The patient is afebrile, abdomen is nondistended, breathing is unlabored, skin is warm and dry, no edema.
Neurologic Examination:
The patient is awake, alert and oriented to name only. He is able to follow commands and answer questions appropriately but is very uncooperative. There is no aphasia or dysarthria. On cranial nerve assessment, pupils are 3 mm bilateral, round and
reactive to light and accommodation. FELICITY visual john but blinks to threat in all directions. FELICITY EOMs, gaze is midline and tracks in all directions. There is no facial asymmetry. Hearing is intact bilaterally to normal conversation volume. Tongue
palate and uvula are midline. Motor strengths are 5/5 bilateral upper and lower extremities on medical research [place] scale. There is mild rigidity in BUE. There is no drift or involuntary movement noted. Deep tendon reflexes are 1+ bilateral
upper and lower extremities and Babinski is absent bilaterally. FELICITY sensation or DBS due to cooperation. Coordination is intact by finger to nose bilaterally.
Lab Results: See below.
Neuro Imaging:
1. CT Head 11/01/23: Lateral left frontal superficial scalp soft tissue swelling/contusion. No skull fracture. Otherwise stable. No acute intracranial hemorrhage. No extra-axial collection.
Differentials for the patient's presentation include:
1. Encephalopathy possibly in the setting of infection or metabolic disturbance.
2. Underlying dementia like contributing to mental status fluctuation and transient cognitive delays.
3. No focal deficits noted concerning for stroke.
Patient has the following risk factors for their symptoms: Dementia with sleep and behavior disturbance
Recommendations:
-Continue aspirin 81mg daily.
-Do not see a role for further neurological imaging as patient would require sedation and this will likely not demonstrate any significant findings.
-Encourage appropriate sleep/wake cycles.
-Checking blood work for metabolic abnormalities, see orders.
-Infectious workup per primary team.
-Neurological checks per unit guidelines.
-PT/OT/ST evaluations.
-DVT prophylaxis.
Discussed patient care with: Dr. Fishman, the patient
Vital Signs and Labs
-
Vital Signs and Labs:
Vital Signs
Temp Pulse Resp BP Pulse Ox
99.0 F 76 18 151/86 95
11/02/23 11:59 11/02/23 11:59 11/02/23 11:59 11/02/23 11:59 11/02/23 11:59
Lab Results
11/02/23 02:57
11/02/23 02:57
Sodium 138 mmol/L (135-145) 11/02/23 02:57
Potassium 3.6 mmol/L (3.5-5.1) 11/02/23 02:57
BUN 10 mg/dl (9-20) 11/02/23 02:57
Glucose 93 mg/dl (70-99) 11/02/23 02:57
Calcium 9.2 mg/dl (8.4-10.2) 11/02/23 02:57
LDL Cholesterol, Calc 126 mg/dl 11/02/23 02:57
Medications
-
Active Medications
Generic Name Dose Route Start Last Admin
Trade Name Freq PRN Reason Stop Dose Admin
Acetaminophen 650 mg 11/01/23 20:00
Acetaminophen 325 Mg Tablet PO 11/29/23 19:59
Q4HPRN PRN
mild pain/fever
Acetaminophen 650 mg 11/01/23 20:00
Acetaminophen 650 Mg Rectal Suppository RECTAL 11/29/23 19:59
Q4HPRN PRN
WELLER, mild pain, or temp >100.4F
Aspirin 81 mg 11/01/23 22:00 11/01/23 22:03
Aspirin 81 Mg (Enteric Coated) Tablet PO 11/29/23 21:59 81 mg
HS DOYLE Administration
Atorvastatin Calcium 40 mg 11/02/23 18:00
Atorvastatin (Lipitor) 40 Mg Tablet PO 11/30/23 17:59
QPM DOYLE
Donepezil HCl 10 mg 11/01/23 22:00 11/01/23 22:03
Donepezil Hcl 10 Mg Tablet PO 11/29/23 21:59 10 mg
HS DOYLE Administration
Enoxaparin Sodium 40 mg 11/02/23 18:00
Enoxaparin Sodium 40 Mg/0.4 Ml Syringe SC 11/30/23 17:59
QPM DOYLE
Famotidine 40 mg 11/01/23 22:00 11/01/23 22:04
Famotidine 40 Mg Tablet PO 11/29/23 21:59 40 mg
HS DOYLE Administration
Lorazepam 0.5 mg 11/01/23 20:00
Lorazepam 0.5 Mg Tablet PO 11/29/23 19:59
Q8HPRN PRN
anxiety/restlessness
Memantine 28 mg 11/01/23 22:00 11/01/23 22:03
Memantine Extended Release 28mg Capsule PO 11/29/23 21:59 28 mg
HS DOYLE Administration
Metoprolol Tartrate 12.5 mg 11/01/23 21:00 11/02/23 13:23
Metoprolol 12.5 Mg Regular Release Dose (1/2 Of 25 Mg Tablet) PO 11/29/23 20:59 Not Given
BID@0900,2100 DOYLE
Non-Formulary Medication 40 mg 11/02/23 08:00
Febuxostat [Uloric] PO 11/30/23 07:59
DAILY DOYLE
Quetiapine Fumarate 25 mg 11/02/23 08:00 11/02/23 13:23
Quetiapine 25 Mg Tablet PO 11/30/23 07:59 Not Given
DAILY DOYLE
Quetiapine Fumarate 100 mg 11/01/23 22:00 11/01/23 22:04
Quetiapine 100 Mg Tablet PO 11/29/23 21:59 100 mg
HS DOYLE Administration
Sodium Chloride 0 flush 11/01/23 21:00
Sodium Chloride 0.9% (Flush) Syringe IV 11/29/23 20:59
PER PROTOCOL DOYLE
Tamsulosin HCl 0.4 mg 11/01/23 22:00 11/01/23 22:03
Tamsulosin 0.4 Mg Capsule PO 11/29/23 21:59 0.4 mg
HS DOYLE Administration
Home Medications
Medication Instructions Recorded
famotidine 40 mg tablet (Pepcid) 40 mg PO HS Gastrointestinal issue 11/11/22
febuxostat 40 mg tablet (Uloric) 40 mg PO DAILY Gout 11/11/22
loratadine 10 mg tablet (Claritin) 10 mg PO DAILY Allergies 11/11/22
memantine ER 28 mg-donepezil 10 mg 1 cap PO HS MEMORY 11/11/22
capsule sprinkle,ext.release 24 hr
(Namzaric)
aspirin 81 mg tablet,delayed 81 mg PO HS Blood clot 12/05/22
release prevention/tx
cyanocobalamin (vitamin B-12) 500 500 mcg PO DAILY Supplement 12/05/22
mcg tablet
tamsulosin 0.4 mg capsule 0.4 mg PO HS Urinary Issue 12/05/22
acetaminophen 325 mg tablet 650 mg PO Q4HPRN PRN mild 09/25/23
(Tylenol) pain/fever
lorazepam 0.5 mg tablet 0.5 mg PO Q8HPRN PRN 09/25/23
anxiety/restlessness
metoprolol tartrate 25 mg tablet 12.5 mg PO BID@0900,2100 Blood 09/25/23
Pressure
quetiapine 100 mg tablet 100 mg PO HS Mental Health/Anxiety 09/25/23
quetiapine 25 mg tablet 25 mg PO DAILY Mental 09/25/23
Health/Anxiety
calcium polycarbophil 625 mg 1,250 mg PO DAILY Constipation 11/01/23
tablet (FiberCon)
epinephrine 0.3 mg/0.3 mL 0.3 mg IM DAILY PRN allergies 11/01/23
injection syringe
[2023-11-02 09:27] LABS: Glycohemoglobin (HgbA1c) 5.6 % (4.0-5.6)
[2023-11-02 11:59] VITALS: BP 151/86
[2023-11-02] MEDS: LOPRESSOR PO (13:23)
[2023-11-02 13:54] VITALS: BMI 22.9
--- NOTE | 2023-11-02 15:42 | CM ---
manager food beverage reviewed patient's chart and spoke with patient's spouse, patient with dementia, patient was admitted from [facility], where patient resides, patient was independent with adl's and did not use any dme, residential case manager spoke with patient's
spouse who reports that this is a big change for patient. Patient's spouse is aware that patient fell in ED. manager food beverage made patient's spouse aware that patient is observation and [employer] letter provided, not signed.
PCP: Dr. Polanco
Plan; To follow with patient progress.
[2023-11-02 16:00] VITALS: BP 145/96
--- NOTE | 2023-11-02 16:37 | PTOTSP ---
Dysphagia Evaluation
Patient presents with signs concerning for at least mild-mild oral and possible pharyngeal dysphagia - likely impacted by acute on chronic changes to cognition from his dementia. He is at an elevated risk for dysphagia given his need for full
assistance with feeding at this time due to AMS.
Recommend:
1. IDDSI Level 6 (Soft and Bite Sized), IDDSI Level 0 (Thin Liquids)
2. Medications - crushed in puree if medically cleared
3. 1:1 supervision and assistance with feeding
4. Strategies: small single sips/bites, slow rate, ensure patient clears mouth and swallows before next sip/bite, check for pocketing
5. Dysphagia tx at the acute care level for caregiver education and to determine if when further diet advancement may be appropriate.
--- NOTE | 2023-11-02 16:39 | W.PN.HOSP.TC ---
Documented by User: Connie Alicia MD, Resident 11/02/23 17:15
Today's Communication/Plan
-
See A/P
Assessment / Plan
Assessment / Plan
Assessment/Plan: 77-year-old male sent from [facility] for evaluation of speech change and worsening confusion with known history of advanced dementia, currently speech clear but extremely confused and move extremities around.� Denies
any particular complaint.
Worsening Confusion
Underlying Dementia
-CT Head 11/01/23: Lateral left frontal superficial scalp soft tissue swelling/contusion. No skull fracture. Otherwise stable. No acute intracranial hemorrhage. No extra-axial collection.
-Neurology Consulted
-Continue Aspirin 81mg
-Continue Statin
-Continue Seroquel and quetiapine
-Neurology recommending Increase of quetiapine dosage during the day to 50mg.
-Workup for stroke negative at this time.
-Neurology not recommending any imagine studies
-Will contact Assisted to determine baseline
-1:1 Supervision
-Plan to discharge back to correction if Neurology gives Ok.
Code Status: Full Code
DVT ppx: Lovenox
Anticipated Discharge: 24 - 48 hours
Subjective/Interval History
-
Date of Service: November 02, 2023
Objective Data
-
Vital Signs:
Vital Signs
Temp Pulse Resp BP Pulse Ox
99.0 F 76 18 151/86 95
11/02/23 11:59 11/02/23 11:59 11/02/23 11:59 11/02/23 11:59 11/02/23 11:59
Review of Systems
-
Unable to obtain full review of systems at this time due to: Dementia
Physical Exam
-
General: Well Developed and Well Nourished
HEENT: Normocephalic and Atraumatic
Respiratory: Clear to Auscultation; Negative Wheezes or Rales
Cardiac: Regular Rhythm and S1/S2
GI: Soft, Nontender, Nondistended and Normal Bowel Sounds
Musculoskeletal: No Clubbing, No Cyanosis and No Edema
Neuro: Awake and Alert; Negative Oriented
Psych: Apparent Dementia

Documented by User: Jameel Figueroa MD 11/02/23 21:08
Review of Systems
-
Unable to obtain full review of systems at this time due to: Dementia
History Source: Assisted
Data Reviewed
-
Diagnostic Radiology: Report Reviewed by me
CT Scan: Report Reviewed by me
Labs: Labs Reviewed by me and Discussed with Physician
[2023-11-02 16:53] LABS: TSH Reflex To Free T4 3.34 uIU/ml (0.47-4.68)
--- NOTE | 2023-11-02 17:09 | PTCARENOTE ---
Addendum entered by Marychuy Barros RN 11/02/23 20:10:
Also notified that Lopressor was held this am due to patient lethargy and inability to take POs.
Original Note:
Patient in bed with asymptomatic sinus tachycardia 130-[address] Figueroa notified.
[2023-11-02 17:29] LABS: Folate 9.9 ng/ml (2.76-20); Vitamin B12 936 pg/ml (239-931)
--- NOTE | 2023-11-02 18:13 | PTCARENOTE ---
Patient remains in bed with asymptomatic sinus tachycardia, rate now 120 bpm (was 130-140 bpm 1 hour prior). Message forwarded to cross-cover hospitalist, then Dr. Figueroa' resident Dr. Alicia. Also notified that Lopressor was held this am due
to patient lethargy and inability to take POs.
[2023-11-02 19:30] VITALS: BP 158/93
[2023-11-02] MEDS: LOVENOX 40 MG SC (19:40)
[2023-11-02] MEDS: LIPITOR 40 MG PO (19:41)
[2023-11-02] MEDS: NAMENDA XR 28 MG PO (21:58)
[2023-11-02] MEDS: FLOMAX 0.400000000000000022 MG PO (21:58)
[2023-11-02] MEDS: OFIRMEV 100 IV (21:58)
[2023-11-02] MEDS: SEROQUEL 100 MG PO (21:59)
[2023-11-02] MEDS: PEPCID 40 MG PO (21:59)
[2023-11-02] MEDS: LOPRESSOR 12.5 MG PO (21:59)
[2023-11-02] MEDS: ARICEPT 10 MG PO (21:59)
[2023-11-02] MEDS: ASPIR LOW (ENTERIC COATED) 81 MG PO (22:01)
--- NOTE | 2023-11-02 22:32 | PTCARENOTE ---
Addendum entered by Nisha Gibbons RN 11/03/23 00:48:
Maribel FORMAN aware that pt's nasal swab came back positive for influenza A
Addendum entered by Nisha Gibbons RN 11/02/23 23:33:
flu and covid tests ordered as well as blood cultures, and urine specimen and blood work.
Original Note:
rec'd pt at the start of the shift with temp of 103.1 axillary. Maribel FORMAN made aware. Ordered iv tylenol.
[2023-11-02 22:42] VITALS: BP 133/83
[2023-11-02 23:24] LABS: % Basophils 0.6 % (0-2); % Eosinophils 1.8 % (0-6); % Immature Granulocytes 0.2 % (0-0.5); % Lymphocytes 7.8 % (20.5-51.1); % Monocytes 13.2 % (1.7-9.3); % Neutrophils 76.4 % (42.2-75.2); Absolute Eosinophils 0.1 10^3/uL (0-0.7); Absolute Lymphocytes 0.4 10^3/uL (1.2-3.4); Absolute Monocytes 0.7 10^3/uL (0.1-0.6); Absolute Neutrophils 3.8 10^3/uL (1.4-6.5); Hematocrit 35.5 % (39.0-52.0); Hemoglobin 12.4 g/dL (13.0-18.0); Mean Corp Hgb Conc. 34.9 g/dL (33.0-37.0); Mean Corpuscular Hgb 29.4 pg (27.0-31.0); Mean Corpuscular Volume 84.1 fL (80.0-94.0); Mean Platelet Volume 9.9 fL (7.4-10.4); Nucleated Red Blood Cells % 0 % (-); Platelet Count 127 10^3/uL (130-400); Red Blood Cell Count 4.22 10^6/uL (4.70-6.10); Red Cell Dist. Width 13.7 % (11.5-14.5)
[2023-11-02 23:36] LABS: Lactic Acid 0.8 mmol/L (0.7-2.0)
[2023-11-03] VITALS (8 sets, daily range): BP systolic 91–136; BP diastolic 53–78; PULSE 108; O2SAT 93
[2023-11-03 00:13] LABS: Urine Albumin Trace (Neg - Trace); Urine Bilirubin Negative (Negative); Urine Character Clear (Clear); Urine Color Yellow; Urine Glucose Negative (Negative); Urine Ketone 2+ (Negative); Urine Leukocyte Trace (Negative); Urine Nitrite Negative (Negative); Urine Occult Blood Negative (Negative); Urine Urobilinogen Negative (Neg - 1+)
[2023-11-03 00:31] LABS: COVID-19 Antigen Negative (Negative)
[2023-11-03 01:22] LABS: Urine Amorphous Seen
[2023-11-03 01:23] LABS: Urine Bacteria Many (Negative); Urine White Cell 30-40 /HPF (0-5)
[2023-11-03 01:24] LABS: Urine Squamous Cell SEEN /LPF (Few)
[2023-11-03 01:46] LABS: Hepatitis C Antibody Negative (Negative)
--- NOTE | 2023-11-03 03:03 | W.PN.UPDATE ---
Update Note
Progress Note Update
RN notified CRANIOLOGIST of fever of 103.1, Axillary, checked Rectally temp of 103. patient feels warm to touch. Ordered, Influenza A, Covid test, Blood culture and labs. Positive for Influenza, mild cough, otherwise asymptomatic, will do symptom management.
Placed in Private room.
[2023-11-03] MEDS: ULORIC 40 MG PO (08:45)
[2023-11-03] MEDS: LOPRESSOR 12.5 MG PO ×2 (08:45→20:13)
[2023-11-03] MEDS: SEROQUEL 50 MG PO (08:50)
--- NOTE | 2023-11-03 13:32 | CM ---
Chart reviewed and will await updated physical therapy notes to review plan for patient, per spouse patient was independent at [facility].
Plan; To follow with patient progress.
[2023-11-03] MEDS: TYLENOL 650 MG PO ×2 (15:05→20:13)
--- NOTE | 2023-11-03 18:02 | W.PN.HOSP.TC ---
Addendum entered and electronically signed by Roge Figueroa MD 11/03/23 22:58:
Attending Addendum-
I saw and evaluated the patient. I reviewed the resident�s note and agree with findings and plan as documented in the resident�s note. Patient with present at bedside had fever this am dx with influenza exam: gen mild distress heart RR lungs
clear abd soft LE n o edema neuro non verbal not following commands appear dry Plan: influenza- start tamiflu cont isolation d/w [facility] re isolation protocols PT OT Dementia with behavioral disturbance/Acute delirium- from flu cont to monitor
IVF repeat labs add seroquel per neuro appreciated input
Time spent coordinating care, review of plan of care with resident, review of records, med rec, consults, notes, labs, rads, d/w nursing - 50 mins
Original Note:
Documented by User: Connie Alicia MD, Resident 11/03/23 18:17
Today's Communication/Plan
-
See A/P
Positive Influenza A result
Tamiflu initiated
Acetaminophen as needed for fever.
Will discuss with [facility] criteria for accepting patients with Flu.
Assessment / Plan
Assessment / Plan
Assessment/Plan:
#Influenza Virus
Overnight event, Patient presented with Fever of 103.1 Axillary, checked Rectally temp of 103. Patient felt warm to tough.
-Positive Influenza A
-Start Patient on Tamiflu
-Acetaminophen as needed for fever
-Monitor Vitals
#Advanced Alzheimer's disease with Behavioral Agitation
#Underlying Dementia
-CT Head 11/01/23: Lateral left frontal superficial scalp soft tissue swelling/contusion. No skull fracture. Otherwise stable. No acute intracranial hemorrhage. No extra-axial collection.
-Continue Aspirin 81mg
-Continue Statin
-Continue Seroquel and quetiapine
-Neurology recommending Increase of quetiapine dosage during the day to 50mg.
-Workup for stroke negative at this time.
-Neurology not recommending any imagine studies
-Baseline determined. Patient demented at baselines. Previously, his speech was easy to understand but became more confused and was sent to the ED
-Continue PT/OT
Code Status: Full Code
DVT ppx: Lovenox
Anticipated Discharge: 24 - 48 hours
Subjective/Interval History
-
Discussed with Patient's at Bedside. She reports patient's function has declined over the past few days. She reports patient 'presenting a different behavior'.
Objective Data
-
Vital Signs:
Vital Signs
Temp Pulse Resp BP Pulse Ox
100.3 F 108 18 131/75 93
11/03/23 17:07 11/03/23 15:12 11/03/23 15:12 11/03/23 15:12 11/03/23 15:12
I&O
11/02/23 11/03/23 11/04/23
06:59 06:59 06:59
Intake Total 240 / 240
Output Total 200 / 200
Balance -200 / -200 240 / 240
Review of Systems
-
Unable to obtain full review of systems at this time due to: Dementia
Physical Exam
-
General: Appears in Distress and Other (appears ill, appears fatigued, rigidity)
HEENT: Moist Mucous Membranes
Respiratory: Clear to Auscultation; Negative Wheezes or Rales
Cardiac: Regular Rhythm and S1/S2
GI: Soft, Nontender and Nondistended
Musculoskeletal: No Clubbing and No Cyanosis
Neuro: Awake; Negative Alert or Oriented
Psych: Apparent Dementia

Documented by User: Roge Figueroa MD 11/03/23 22:53
Data Reviewed
-
Labs: Labs Reviewed by me and Discussed with Physician
[2023-11-03] MEDS: LIPITOR 40 MG PO (18:41)
[2023-11-03] MEDS: LOVENOX 40 MG SC (18:41)
[2023-11-03] MEDS: TAMIFLU 75 MG PO (20:13)
[2023-11-03] MEDS: ARICEPT 10 MG PO (21:13)
[2023-11-03] MEDS: ASPIR LOW (ENTERIC COATED) 81 MG PO (21:13)
[2023-11-03] MEDS: FLOMAX 0.400000000000000022 MG PO (21:13)
[2023-11-03] MEDS: SEROQUEL 100 MG PO (21:13)
[2023-11-03] MEDS: PEPCID 40 MG PO (21:14)
[2023-11-03] MEDS: NAMENDA XR 28 MG PO (21:14)
[2023-11-03] MEDS: NSS 1000 IV (23:25)
[2023-11-04 07:30] VITALS: BP 163/66
[2023-11-04 07:42] LABS: % Basophils 0.8 % (0-2); % Eosinophils 0.6 % (0-6); % Immature Granulocytes 0.3 % (0-0.5); % Lymphocytes 25.3 % (20.5-51.1); % Monocytes 17.3 % (1.7-9.3); % Neutrophils 55.7 % (42.2-75.2); Absolute Lymphocytes 0.9 10^3/uL (1.2-3.4); Absolute Monocytes 0.6 10^3/uL (0.1-0.6); Hematocrit 36.1 % (39.0-52.0); Hemoglobin 12.3 g/dL (13.0-18.0); Mean Corp Hgb Conc. 34.1 g/dL (33.0-37.0); Mean Corpuscular Hgb 29.9 pg (27.0-31.0); Mean Corpuscular Volume 87.6 fL (80.0-94.0); Mean Platelet Volume 10.5 fL (7.4-10.4); Nucleated Red Blood Cells % 0 % (-); Platelet Count 116 10^3/uL (130-400); Red Blood Cell Count 4.12 10^6/uL (4.70-6.10); White Blood Cell Count 3.6 10^3/uL (4.8-10.8)
[2023-11-04] MEDS: ULORIC 40 MG PO (08:00)
[2023-11-04] MEDS: SEROQUEL 50 MG PO (08:01)
[2023-11-04] MEDS: LOPRESSOR 12.5 MG PO ×2 (08:01→19:57)
[2023-11-04] MEDS: TAMIFLU 75 MG PO ×2 (08:01→19:57)
[2023-11-04 08:08] LABS: ALT (SGPT) 22 U/L (0-50); AST (SGOT) 32 U/L (17-59); Albumin 3.4 g/dl (3.5-5.0); Alkaline Phosphatase 81 U/L (38-126); Blood Urea Nitrogen 29 mg/dl (9-20); Calcium 8.5 mg/dl (8.4-10.2); Carbon Dioxide 27 mmol/L (22-30); Chloride 106 mmol/L (98-107); Creatine Phosphokinase 176 U/L (55-170); Estimated Creatinine Clearance 40 ml/min; Glucose 94 mg/dl (70-99); Potassium 4.4 mmol/L (3.5-5.1); Sodium 139 mmol/L (135-145); Total Bilirubin 1.2 mg/dl (0.2-1.3); Total Protein 6.1 g/dl (6.3-8.2); eGFR 41.52
[2023-11-04 11:33] VITALS: BP 115/56
[2023-11-04] MEDS: NSS 1000 IV (11:38)
--- NOTE | 2023-11-04 14:45 | W.PN.HOSP.TC ---
Addendum entered and electronically signed by Roge Figueroa MD 11/04/23 23:30:
Attending Addendum-
I saw and evaluated the patient. I reviewed the resident�s note and agree with findings and plan as documented in the resident�s note. Patient seen with present at bedside contintues with intermittent fevers patient feels much improved, exam:
gen NAD heart RRR lungs clear abd soft LE no edema neuro- AAO x 1 following commands MMM
Plan:
# Influenza A- cont tamiflu cont isolation d/w [employer] re isolation protocols- will take back when able PT OT
# Dementia with behavioral disturbance/Acute delirium- improved, from flu, back to baseline mentation, cont to monitor cont IVF repeat labs cont increase in seroquel per neuro
# Pancytopenia- likely viral induced repeat labs in AM
# JIM- check fena, r/o obstruction with PVR vs US repeat labs in am
Dispo- eventual DC back to [facility] - SW and facility aware
Time spent coordinating care, review of plan of care with resident, review of records, med rec, consults, notes, labs, rads, d/w nursing/, SW - 55 mins
Original Note:
Documented by User: Connie Alicia MD, Resident 11/04/23 18:05
Today's Communication/Plan
-
Continue Tamiflu
Discussed with junior assistant manager regarding placement.
Assessment / Plan
Assessment / Plan
Assessment/Plan:
#Influenza Virus
-Positive Influenza A
-Continue Patient on Tamiflu for another 4 days
-Acetaminophen as needed for fever
-Monitor Vitals
#Advanced Alzheimer's disease with Behavioral Agitation
#Underlying Dementia
-CT Head 11/01/23: Lateral left frontal superficial scalp soft tissue swelling/contusion. No skull fracture. Otherwise stable. No acute intracranial hemorrhage. No extra-axial collection.
-Continue Aspirin 81mg
-Continue Statin
-Continue Seroquel and quetiapine
-Neurology recommending Increase of quetiapine dosage during the day to 50mg.
-Workup for stroke negative at this time.
-Neurology not recommending any imagine studies
-Baseline determined. Patient demented at baselines. Previously, his speech was easy to understand but became more confused and was sent to the ED
-Continue PT/OT
Code Status: Full Code
DVT ppx: Lovenox
Anticipated Discharge: > 48 hours
Subjective/Interval History
-
Date of Service: November 04, 2023
Objective Data
-
Labs:
Laboratory Results
11/04/23
07:11
WBC 3.6 L
Hgb 12.3 L
Hct 36.1 L
Plt Count 116 L
Sodium 139
Potassium 4.4
Chloride 106
Carbon Dioxide 27
BUN 29 H
Creatinine 1.7 H
Glucose 94
Calcium 8.5
Total Bilirubin 1.2
AST 32
ALT 22
Alkaline Phosphatase 81
Vital Signs:
Vital Signs
Temp Pulse Resp BP Pulse Ox
100.8 F H 69 22 115/56 96
11/04/23 11:33 11/04/23 11:33 11/04/23 11:33 11/04/23 11:33 11/04/23 11:33
I&O
11/03/23 11/04/23 11/05/23
06:59 06:59 06:59
Intake Total 240 / 240
Output Total 200 / 200 125 / 125
Balance -200 / -200 115 / 115
Review of Systems
-
Unable to obtain full review of systems at this time due to: Dementia
Physical Exam
-
General: Well Developed, Well Nourished and Fever
HEENT: Normocephalic and Other (stitches present on forehead, no drainage, no swelling)
Respiratory: Clear to Auscultation; Negative Wheezes or Rales
Cardiac: Regular Rhythm and S1/S2
GI: Soft, Nontender and Nondistended
Musculoskeletal: No Clubbing and No Cyanosis
Neuro: Awake and Alert; Negative Oriented
Psych: Apparent Dementia
Data Reviewed
-
Labs: Labs Reviewed by me and Discussed with Physician

Documented by User: Roge Figueroa MD 11/04/23 23:23
Review of Systems
-
History Source: Family
All other systems: Reviewed and negative (limited by dementia)
Respiratory: Reports No Symptoms
Cardiac: Reports No Symptoms
Abdomen/GI: Reports No Symptoms
Genitourinary: Reports No Symptoms
[2023-11-04 15:50] VITALS: BP 146/76
--- NOTE | 2023-11-04 16:17 | CM ---
Chart reviewed and physical therapy are recommending skilled placement, options reviewed with patient and spouse and referrals sent to [facility] and [facility].
Plan; Skilled placement for patient.
[2023-11-04] MEDS: LIPITOR 40 MG PO (17:19)
[2023-11-04] MEDS: LOVENOX 40 MG SC (17:20)
--- NOTE | 2023-11-04 18:32 | PTCARENOTE ---
patient plays in bowel movement, all over bed and patients hands.RN notified
[2023-11-04 19:44] VITALS: BP 119/66
[2023-11-04] MEDS: ARICEPT 10 MG PO (21:46)
[2023-11-04] MEDS: NAMENDA XR 28 MG PO (21:46)
[2023-11-04] MEDS: SEROQUEL 100 MG PO (21:46)
[2023-11-04] MEDS: FLOMAX 0.400000000000000022 MG PO (21:46)
[2023-11-04] MEDS: ASPIR LOW (ENTERIC COATED) 81 MG PO (21:46)
[2023-11-04] MEDS: PEPCID 40 MG PO (21:46)
[2023-11-04 23:14] VITALS: BP 129/70
[2023-11-04] MEDS: NSS IV (23:41)
[2023-11-05 03:03] VITALS: BP 127/70
[2023-11-05 07:30] VITALS: BP 128/68
[2023-11-05 08:16] LABS: Urine Sodium 63 mmol/L (30-90)
[2023-11-05 08:42] LABS: % Basophils 0.9 % (0-2); % Immature Granulocytes 0.3 % (0-0.5); % Lymphocytes 31.5 % (20.5-51.1); % Monocytes 14.7 % (1.7-9.3); % Neutrophils 49.6 % (42.2-75.2); Absolute Eosinophils 0.1 10^3/uL (0-0.7); Absolute Lymphocytes 1.1 10^3/uL (1.2-3.4); Absolute Monocytes 0.5 10^3/uL (0.1-0.6); Absolute Neutrophils 1.7 10^3/uL (1.4-6.5); Hematocrit 36.6 % (39.0-52.0); Hemoglobin 12.3 g/dL (13.0-18.0); Mean Corp Hgb Conc. 33.6 g/dL (33.0-37.0); Mean Corpuscular Hgb 29.4 pg (27.0-31.0); Mean Corpuscular Volume 87.6 fL (80.0-94.0); Mean Platelet Volume 11.1 fL (7.4-10.4); Nucleated Red Blood Cells % 0 % (-); Platelet Count 123 10^3/uL (130-400); Red Blood Cell Count 4.18 10^6/uL (4.70-6.10); Red Cell Dist. Width 13.7 % (11.5-14.5); White Blood Cell Count 3.3 10^3/uL (4.8-10.8)
[2023-11-05] MEDS: SEROQUEL 50 MG PO (09:03)
[2023-11-05] MEDS: TAMIFLU 75 MG PO ×2 (09:03→19:57)
[2023-11-05] MEDS: ULORIC 40 MG PO (09:03)
[2023-11-05] MEDS: LOPRESSOR 12.5 MG PO ×2 (09:03→21:27)
[2023-11-05 09:33] LABS: Blood Urea Nitrogen 24 mg/dl (9-20); Calcium 8.5 mg/dl (8.4-10.2); Carbon Dioxide 29 mmol/L (22-30); Chloride 103 mmol/L (98-107); Estimated Creatinine Clearance 56 ml/min; Glucose 75 mg/dl (70-99); Potassium 3.9 mmol/L (3.5-5.1); Sodium 141 mmol/L (135-145); eGFR > 60.00
[2023-11-05 11:15] VITALS: BP 117/90
[2023-11-05] MEDS: NSS 1000 IV (13:30)
[2023-11-05 15:30] VITALS: BP 127/63
--- NOTE | 2023-11-05 17:03 | W.PN.HOSP.TC ---
Addendum entered and electronically signed by Roge Figueroa MD 11/05/23 21:46:
Attending Addendum-
I saw and evaluated the patient. I reviewed the resident�s note and agree with findings and plan as documented in the resident�s note. Patient pleasantly demented NAEON, no complaints, exam: gen NAD heart RRR lungs clear abd soft LE no edema neuro-
AAO x 1 following commands MMM
Plan:
# Influenza A- cont tamiflu x 5 days cont isolation d/w [facility] re isolation protocols- will take back when able, PT OT
# Dementia with behavioral disturbance/Acute delirium- back to baseline mentation, cont to monitor cont IVF repeat labs cont increase in seroquel per neuro
# Pancytopenia- present likely viral induced repeat labs in AM
# JIM/Dehydration- improved, reviewed fena-prerenal, no obstruction noted, repeat labs in am
Dispo- eventual DC back to [place] - SW and facility aware
Time spent coordinating care, review of plan of care with resident, review of records, med rec, consults, notes, labs, rads, d/w nursing/, SW - 50 mins
Original Note:
Documented by User: Connie Alicia MD, Resident 11/05/23 17:11
Today's Communication/Plan
-
See A/P
Monitor on IV fluids
PT Evaluation.
Monitor BMP
Assessment / Plan
Assessment / Plan
Assessment/Plan:
#Influenza Virus
-Positive Influenza A
-Continue Patient on Tamiflu for another 3 days
-Acetaminophen as needed for fever
-Monitor Vitals
Acute Delirium on Dementia
-IVF
-Continue current Seroquel regimen
-Improved
-back to baseline
-Continue to monitor
-PT evaluation
JIM
-FeNa 0.6% indicating Pre renal etiology
-Continue IV fluids
-Monitor BMP.
Code Status: Full Code
DVT ppx: Lovenox
Anticipated Discharge: 24 - 48 hours
Objective Data
-
Labs:
Laboratory Results
11/05/23
07:16
WBC 3.3 L
Hgb 12.3 L
Hct 36.6 L
Plt Count 123 L
Sodium 141
Potassium 3.9
Chloride 103
Carbon Dioxide 29
BUN 24 H
Creatinine 1.2
Glucose 75
Calcium 8.5
Vital Signs:
Vital Signs
Temp Pulse Resp BP Pulse Ox
97.7 F 65 18 127/63 98
11/05/23 15:30 11/05/23 15:30 11/05/23 15:30 11/05/23 15:30 11/05/23 15:30
I&O
11/04/23 11/05/23 11/06/23
06:59 06:59 06:59
Intake Total 240 / 240 360 / 360
Output Total 125 / 125
Balance 115 / 115 360 / 360
Review of Systems
-
Unable to obtain full review of systems at this time due to: Dementia
All other systems: Reviewed and negative (limited by dementia)
Respiratory: Reports No Symptoms
Cardiac: Reports No Symptoms
Abdomen/GI: Reports No Symptoms
Genitourinary: Reports No Symptoms
Physical Exam
-
General: Well Developed and Well Nourished
HEENT: Normocephalic and Other (stitches present on forehead, no drainage, no swelling)
Respiratory: Clear to Auscultation; Negative Wheezes or Rales
Cardiac: Regular Rhythm and S1/S2
GI: Soft, Nontender and Nondistended
Musculoskeletal: No Clubbing, No Cyanosis and No Edema
Neuro: Awake and Alert; Negative Oriented
Psych: Apparent Dementia
Data Reviewed
-
Labs: Labs Reviewed by me and Discussed with Physician

Documented by User: Roge Figueroa MD 11/05/23 21:43
Subjective/Interval History
-
Patient with dementia, NAEON no complaints
[2023-11-05] MEDS: LIPITOR 40 MG PO (17:16)
[2023-11-05] MEDS: LOVENOX 40 MG SC (17:16)
[2023-11-05] MEDS: ASPIR LOW (ENTERIC COATED) 81 MG PO (21:26)
[2023-11-05] MEDS: SEROQUEL 100 MG PO (21:26)
[2023-11-05] MEDS: FLOMAX 0.400000000000000022 MG PO (21:27)
[2023-11-05] MEDS: ARICEPT 10 MG PO (21:27)
[2023-11-05] MEDS: PEPCID 40 MG PO (21:30)
[2023-11-05] MEDS: NAMENDA XR 28 MG PO (21:30)
[2023-11-05 23:14] VITALS: BP 125/79
[2023-11-06] MEDS: NSS 1000 IV ×2 (02:10→13:02)
[2023-11-06 05:42] LABS: % Basophils 0.7 % (0-2); % Eosinophils 3.9 % (0-6); % Lymphocytes 35.1 % (20.5-51.1); % Monocytes 13.8 % (1.7-9.3); % Neutrophils 46.5 % (42.2-75.2); Absolute Eosinophils 0.1 10^3/uL (0-0.7); Absolute Lymphocytes 1.1 10^3/uL (1.2-3.4); Absolute Monocytes 0.4 10^3/uL (0.1-0.6); Absolute Neutrophils 1.4 10^3/uL (1.4-6.5); Hematocrit 34.7 % (39.0-52.0); Hemoglobin 11.9 g/dL (13.0-18.0); Mean Corp Hgb Conc. 34.3 g/dL (33.0-37.0); Mean Corpuscular Hgb 29.5 pg (27.0-31.0); Mean Corpuscular Volume 85.9 fL (80.0-94.0); Mean Platelet Volume 10.7 fL (7.4-10.4); Nucleated Red Blood Cells % 0 % (-); Platelet Count 133 10^3/uL (130-400); Red Blood Cell Count 4.04 10^6/uL (4.70-6.10); Red Cell Dist. Width 13.2 % (11.5-14.5); White Blood Cell Count 3.1 10^3/uL (4.8-10.8)
[2023-11-06 06:07] LABS: Blood Urea Nitrogen 17 mg/dl (9-20); Calcium 8.4 mg/dl (8.4-10.2); Carbon Dioxide 25 mmol/L (22-30); Chloride 106 mmol/L (98-107); Estimated Creatinine Clearance 75 ml/min; Glucose 83 mg/dl (70-99); Potassium 3.6 mmol/L (3.5-5.1); Sodium 140 mmol/L (135-145); eGFR > 60.00
[2023-11-06 07:30] VITALS: BP 139/74
[2023-11-06] MEDS: TAMIFLU 75 MG PO ×2 (08:30→19:59)
[2023-11-06] MEDS: LOPRESSOR 12.5 MG PO ×2 (08:30→21:27)
[2023-11-06] MEDS: ULORIC 40 MG PO (08:30)
[2023-11-06] MEDS: SEROQUEL 50 MG PO (08:31)
--- NOTE | 2023-11-06 09:54 | W.PN.HOSP.TC ---
Addendum entered and electronically signed by Roge Figueroa MD 11/06/23 23:17:
Attending Addendum-
I saw and evaluated the patient. I reviewed the resident�s note and agree with findings and plan as documented in the resident�s note. Patient pleasantly demented poor historian RANJIT, no complaints, exam: gen NAD heart RRR lungs clear abd soft LE
no edema neuro- AAO x 1 following commands, rigid
Plan:
# UTI- entercoccus- start amox x 5 days
# Influenza A- cont tamiflu until 11/07, cont droplet precautions, d/w [facility] re isolation protocols- will take back when able, PT OT SW aware
# Dysphagia- cont modified diet/pureed
# Dementia with behavioral disturbance/Acute delirium- back to baseline mentation, cont to monitor cont IVF repeat labs cont increase in seroquel per neuro
# Pancytopenia- present likely viral induced repeat labs in AM
# JIM/Dehydration- improved, reviewed fena-prerenal, no obstruction noted, repeat labs in am
Dispo- eventual DC [facility] - SW and facility aware
Time spent coordinating care, review of plan of care with resident, review of records, med rec, consults, notes, labs, rads, d/w nursing/, SW - 55 mins
Original Note:
Today's Communication/Plan
-
Abx for UTI
Aspiration Precaution
Continue Tamiflu.
Assessment / Plan
Assessment / Plan
Assessment/Plan:
#UTI
Urine culture positive for Enterococcus faecalis
Start Amoxicillin.
#Influenza Virus
-Positive Influenza A
-Continue Patient on Tamiflu for another 2 days
-Acetaminophen as needed for fever
-Monitor Vitals
Acute Delirium on Dementia
-D/C IVF
-Continue current Seroquel regimen
-Improved
-back to baseline
-Continue to monitor
-PT evaluation
#JIM preRenal
-Cre improved on IVF
-Monitor BMP
#Dysphagia
-Diet Adjustment
-Aspiration precautions.
Code Status: Full Code
DVT ppx: Lovenox
Anticipated Discharge: 24 - 48 hours
Subjective/Interval History
-
Date of Service: November 06, 2023
Objective Data
-
Labs:
Laboratory Results
11/06/23
05:11
WBC 3.1 L
Hgb 11.9 L
Hct 34.7 L
Plt Count 133
Sodium 140
Potassium 3.6
Chloride 106
Carbon Dioxide 25
BUN 17
Creatinine 0.9
Glucose 83
Calcium 8.4
Vital Signs:
Vital Signs
Temp Pulse Resp BP Pulse Ox
97.3 F 60 19 139/74 98
11/06/23 07:30 11/06/23 07:30 11/06/23 07:30 11/06/23 07:30 11/06/23 07:30
I&O
11/05/23 11/06/23 11/07/23
06:59 06:59 06:59
Intake Total 360 / 360 1560 / 1560
Output Total 600 / 600
Balance 360 / 360 960 / 960
Review of Systems
-
Unable to obtain full review of systems at this time due to: Dementia
Physical Exam
-
General: Well Developed, Well Nourished and No Apparent Distress
HEENT: Normocephalic and Atraumatic
Respiratory: Clear to Auscultation; Negative Wheezes or Rales
Cardiac: Regular Rhythm and S1/S2
GI: Soft, Nontender and Nondistended
Musculoskeletal: No Clubbing, No Cyanosis and No Edema
Skin: Warm and Dry
Neuro: Awake and Alert
Psych: Apparent Dementia
Data Reviewed
-
Labs: Labs Reviewed by me and Discussed with Physician
[2023-11-06 15:00] VITALS: BP 113/69
[2023-11-06] MEDS: LIPITOR 40 MG PO (16:06)
[2023-11-06] MEDS: AMOXIL 500 MG PO ×2 (16:06→23:11)
[2023-11-06] MEDS: LOVENOX 40 MG SC (16:07)
[2023-11-06] MEDS: ARICEPT 10 MG PO (21:26)
[2023-11-06] MEDS: SEROQUEL 100 MG PO (21:26)
[2023-11-06] MEDS: FLOMAX 0.400000000000000022 MG PO (21:27)
[2023-11-06] MEDS: ASPIR LOW (ENTERIC COATED) 81 MG PO (21:27)
[2023-11-06] MEDS: NAMENDA XR 28 MG PO (21:27)
[2023-11-06] MEDS: PEPCID 40 MG PO (21:28)
[2023-11-06 23:04] VITALS: BP 122/83
[2023-11-07 03:30] VITALS: BP 127/80
[2023-11-07 03:55] VITALS: BP 127/80
[2023-11-07 06:42] LABS: % Basophils 0.4 % (0-2); % Eosinophils 2.4 % (0-6); % Immature Granulocytes 0.4 % (0-0.5); % Lymphocytes 19.6 % (20.5-51.1); % Monocytes 10.8 % (1.7-9.3); % Neutrophils 66.4 % (42.2-75.2); Absolute Eosinophils 0.1 10^3/uL (0-0.7); Absolute Monocytes 0.6 10^3/uL (0.1-0.6); Absolute Neutrophils 3.4 10^3/uL (1.4-6.5); Hematocrit 36.6 % (39.0-52.0); Hemoglobin 12.7 g/dL (13.0-18.0); Mean Corp Hgb Conc. 34.7 g/dL (33.0-37.0); Mean Corpuscular Hgb 29.2 pg (27.0-31.0); Mean Corpuscular Volume 84.1 fL (80.0-94.0); Mean Platelet Volume 10.6 fL (7.4-10.4); Nucleated Red Blood Cells % 0 % (-); Platelet Count 151 10^3/uL (130-400); Red Blood Cell Count 4.35 10^6/uL (4.70-6.10); Red Cell Dist. Width 13.2 % (11.5-14.5); White Blood Cell Count 5.1 10^3/uL (4.8-10.8)
[2023-11-07 07:45] LABS: Blood Urea Nitrogen 14 mg/dl (9-20); Calcium 8.8 mg/dl (8.4-10.2); Carbon Dioxide 26 mmol/L (22-30); Chloride 105 mmol/L (98-107); Estimated Creatinine Clearance 67 ml/min; Glucose 89 mg/dl (70-99); Potassium 4.7 mmol/L (3.5-5.1); Sodium 142 mmol/L (135-145); eGFR > 60.00
[2023-11-07 07:50] VITALS: BP 104/73
[2023-11-07] MEDS: LOPRESSOR 12.5 MG PO ×2 (08:19→21:15)
[2023-11-07] MEDS: ULORIC 40 MG PO (08:20)
[2023-11-07] MEDS: TAMIFLU 75 MG PO ×2 (08:20→19:56)
[2023-11-07] MEDS: AMOXIL 500 MG PO ×3 (08:20→23:56)
[2023-11-07] MEDS: SEROQUEL 50 MG PO (08:20)
--- NOTE | 2023-11-07 15:15 | W.PN.HOSP.TC ---
Today's Communication/Plan
-
cont abx, tamiflu
dc ready, cm aware
Assessment / Plan
Assessment / Plan
Assessment/Plan:
#UTI
Urine culture positive for Enterococcus faecalis
Start Amoxicillin x 5 days (D2)
#Influenza Virus
-Positive Influenza A
-Continue Patient on Tamiflu for another 1 day
-Acetaminophen as needed for fever
-Monitor Vitals
Acute on Chronic Metabolic Encephalopathy 2/2 to infection and underlying Dementia
-Continue current Seroquel regimen
-Improved
-back to baseline
-Continue to monitor
-PT evaluation
-see treatment plan above
#JIM preRenal
-Cre improved on IVF
-resolved
-Monitor BMP
#Dysphagia
-Diet Adjustment
-Aspiration precautions.
Code Status: Full Code
DVT ppx: Lovenox
DC ready, CM aware
Anticipated Discharge: Within 24 hours
Subjective/Interval History
-
Date of Service: November 07, 2023
no acute events
Objective Data
-
Labs:
Laboratory Results
11/07/23
05:39
WBC 5.1
Hgb 12.7 L
Hct 36.6 L
Plt Count 151
Sodium 142
Potassium 4.7 D
Chloride 105
Carbon Dioxide 26
BUN 14
Creatinine 1.0
Glucose 89
Calcium 8.8
Vital Signs:
Vital Signs
Temp Pulse Resp BP Pulse Ox
98.4 F 70 14 104/73 99
11/07/23 07:50 11/07/23 08:19 11/07/23 07:50 11/07/23 08:19 11/07/23 08:30
I&O
11/06/23 11/07/23 11/08/23
06:59 06:59 06:59
Intake Total 1560 / 1560 840 / 840
Output Total 600 / 600
Balance 960 / 960 840 / 840
Review of Systems
-
Unable to obtain full review of systems at this time due to: Dementia
History Source: Patient
Data Reviewed
-
Labs: Labs Reviewed by me and Discussed with Physician
--- NOTE | 2023-11-07 15:28 | CM ---
Chart reviewed and patient will need to be off med sitter for skilled placement, [facility] Ahm[facility] is requesting updated nursing notes on patient. Chart Home have denied patient.
Plan; When patient is off med sitter will look at other skilled options for patient.
[2023-11-07] MEDS: LIPITOR 40 MG PO (16:37)
[2023-11-07] MEDS: LOVENOX 40 MG SC (16:38)
[2023-11-07 16:47] VITALS: BP 130/74
[2023-11-07] MEDS: ASPIR LOW (ENTERIC COATED) 81 MG PO (21:10)
[2023-11-07] MEDS: NAMENDA XR 28 MG PO (21:10)
[2023-11-07] MEDS: FLOMAX 0.400000000000000022 MG PO (21:10)
[2023-11-07] MEDS: PEPCID 40 MG PO (21:11)
[2023-11-07] MEDS: SEROQUEL 100 MG PO (21:13)
[2023-11-07] MEDS: ARICEPT 10 MG PO (21:14)
[2023-11-07 22:56] VITALS: BP 154/59
[2023-11-08 06:00] LABS: Hematocrit 35.5 % (39.0-52.0); Hemoglobin 12.3 g/dL (13.0-18.0); Mean Corp Hgb Conc. 34.6 g/dL (33.0-37.0); Mean Corpuscular Hgb 29.1 pg (27.0-31.0); Mean Corpuscular Volume 84.1 fL (80.0-94.0); Mean Platelet Volume 10.6 fL (7.4-10.4); Platelet Count 155 10^3/uL (130-400); Red Blood Cell Count 4.22 10^6/uL (4.70-6.10); Red Cell Dist. Width 13.2 % (11.5-14.5); White Blood Cell Count 3.8 10^3/uL (4.8-10.8)
[2023-11-08 06:26] LABS: Blood Urea Nitrogen 18 mg/dl (9-20); Calcium 8.7 mg/dl (8.4-10.2); Carbon Dioxide 29 mmol/L (22-30); Chloride 104 mmol/L (98-107); Estimated Creatinine Clearance 67 ml/min; Glucose 94 mg/dl (70-99); Potassium 3.8 mmol/L (3.5-5.1); Sodium 141 mmol/L (135-145); eGFR > 60.00
[2023-11-08] MEDS: SEROQUEL 50 MG PO (07:43)
[2023-11-08] MEDS: LOPRESSOR 12.5 MG PO ×2 (07:44→21:18)
[2023-11-08] MEDS: TAMIFLU 75 MG PO (07:44)
[2023-11-08] MEDS: AMOXIL 500 MG PO ×3 (07:44→23:09)
[2023-11-08] MEDS: ULORIC 40 MG PO (07:45)
--- NOTE | 2023-11-08 07:45 | PTCARENOTE ---
11/07Kelli Gore/Krish as of 07:45. Patient has not attempted to get out of bed himself. He is combative upon physical movement with cleaning and position changes, but is redirectable and pleasantly confused at rest.
[2023-11-08 07:46] VITALS: BP 129/67
--- NOTE | 2023-11-08 14:52 | W.PN.HOSP.TC ---
Today's Communication/Plan
-
cont abx
complete tamiflu today
dc ready, cm aware
Assessment / Plan
Assessment / Plan
Assessment/Plan:
#UTI
Urine culture positive for Enterococcus faecalis
Start Amoxicillin x 5 days (D3)
#Influenza Virus
-Positive Influenza A
-Completed tamiflu
-Acetaminophen as needed for fever
-Monitor Vitals
Acute on Chronic Metabolic Encephalopathy 2/2 to infection and underlying Dementia
-Continue current Seroquel regimen
-Improved
-back to baseline
-Continue to monitor
-PT evaluation
-see treatment plan above
#JIM, most likely prerenal
-Cre improved on IVF
-resolved
-Monitor BMP
#Dysphagia
-Diet Adjustment
-Aspiration precautions.
Code Status: Full Code
DVT ppx: Lovenox
DC ready, CM aware
Anticipated Discharge: Within 24 hours
Subjective/Interval History
-
Date of Service: November 08, 2023
off medsitter today, no acute events
Objective Data
-
Labs:
Laboratory Results
11/08/23
05:27
WBC 3.8 L
Hgb 12.3 L
Hct 35.5 L
Plt Count 155
Sodium 141
Potassium 3.8
Chloride 104
Carbon Dioxide 29
BUN 18
Creatinine 1.0
Glucose 94
Calcium 8.7
Vital Signs:
Vital Signs
Temp Pulse Resp BP Pulse Ox
97.1 F 56 12 129/67 98
11/08/23 07:46 11/08/23 07:46 11/08/23 07:46 11/08/23 07:46 11/08/23 07:46
I&O
11/07/23 11/08/23 11/09/23
06:59 06:59 06:59
Intake Total 840 / 840 120 / 120
Balance 840 / 840 120 / 120
Review of Systems
-
Unable to obtain full review of systems at this time due to: Dementia
History Source: Patient
Physical Exam
-
General: Well Developed, Well Nourished and No Apparent Distress
HEENT: Normocephalic and Atraumatic
Respiratory: Clear to Auscultation; Negative Wheezes or Rales
Cardiac: Regular Rhythm and S1/S2
GI: Soft, Nontender and Nondistended
Musculoskeletal: No Clubbing, No Cyanosis and No Edema
Skin: Warm and Dry
Neuro: Awake and Alert
Psych: Apparent Dementia
Data Reviewed
-
CT Scan: Image personally visualized and interpreted and Report Reviewed by me
Labs: Labs Reviewed by me and Discussed with Physician
--- NOTE | 2023-11-08 15:32 | CM ---
Reviewed the chart notes and spoke with the patient's spouse via telephone. IMM discussed and placed on the chart.
[2023-11-08 15:43] VITALS: BP 117/68
[2023-11-08] MEDS: LIPITOR 40 MG PO (16:36)
[2023-11-08] MEDS: LOVENOX 40 MG SC (16:36)
[2023-11-08] MEDS: FLOMAX 0.400000000000000022 MG PO (21:18)
[2023-11-08] MEDS: ASPIR LOW (ENTERIC COATED) 81 MG PO (21:18)
[2023-11-08] MEDS: ARICEPT 10 MG PO (21:19)
[2023-11-08] MEDS: SEROQUEL 100 MG PO (21:19)
[2023-11-08] MEDS: PEPCID 40 MG PO (21:19)
[2023-11-08] MEDS: NAMENDA XR 28 MG PO (21:19)
[2023-11-08] MEDS: TYLENOL 650 MG PO (21:20)
[2023-11-08 23:16] VITALS: BP 119/74
[2023-11-09 07:55] VITALS: BP 122/68
[2023-11-09] MEDS: LOPRESSOR 12.5 MG PO ×2 (07:56→21:35)
[2023-11-09] MEDS: SEROQUEL 50 MG PO (07:57)
[2023-11-09] MEDS: ULORIC 40 MG PO (07:57)
[2023-11-09] MEDS: AMOXIL 500 MG PO ×3 (07:58→23:01)
--- NOTE | 2023-11-09 10:40 | W.PN.HOSP.TC ---
Addendum entered and electronically signed by Waldemar Cano MD 11/09/23 15:39:
Patient seen and examined
Discussed with resident. Agree with assessment and plan
77 years old with toxic metabolic encephalopathy which is multifactorial in the settings of acute infection and dehydration.
Mental status improves and back to baseline
Continue supportive care
Physical therapy assessment.
Placement to assisted facility will be required
UTI with Enterococcus.
Afebrile
No evidence for retention.
Continue to complete 5-day course of amoxicillin
Influenza A with stable respiratory status.
Completed Tamiflu.
Acute kidney injury.
No evidence for retention
Creatinine improved from 1.7 to normal with hydration
Monitor oral intake.
Monitor for retention.
Original Note:
Today's Communication/Plan
-
Continue Antibiotics.
PT assessment/evaluation
Ready for D/C. Discuss with patient relations manager regarding return to [facility].
Assessment / Plan
Assessment / Plan
Assessment/Plan:
#UTI
Urine culture positive for Enterococcus faecalis
Start Amoxicillin x 5 days (D4)
#Influenza Virus
-Positive Influenza A
-Completed tamiflu
-Acetaminophen as needed for fever
-Monitor Vitals
Acute on Chronic Metabolic Encephalopathy 2/2 to infection and underlying Dementia
-Continue current Seroquel regimen
-Improved
-back to baseline
-Continue to monitor
-PT evaluation
#JIM, most likely prerenal
-Cre improved on IVF
-resolved
-Monitor BMP
#Dysphagia
-Diet Adjustment
-Aspiration precautions.
Code Status: Full Code
DVT ppx: Lovenox
DC ready, CM aware
Anticipated Discharge: Within 24 hours
Subjective/Interval History
-
Date of Service: November 09, 2023
Objective Data
-
Vital Signs:
Vital Signs
Temp Pulse Resp BP Pulse Ox
98.2 F 56 16 122/68 92
11/09/23 07:55 11/09/23 07:55 11/09/23 07:55 11/09/23 07:55 11/09/23 07:55
I&O
11/08/23 11/09/23 11/10/23
06:59 06:59 06:59
Intake Total 120 / 120
Balance 120 / 120
Physical Exam
-
General: Well Developed and No Apparent Distress
HEENT: Normocephalic, Atraumatic and Moist Mucous Membranes
Respiratory: Clear to Auscultation
Cardiac: Regular Rhythm and S1/S2; Negative Murmur, Rub or Gallop
GI: Soft, Nontender, Nondistended and Normal Bowel Sounds
Rectal: Negative Deferred by Provider
Musculoskeletal: No Clubbing, No Cyanosis and No Edema
Skin: Negative Rash
Psych: Apparent Dementia
[2023-11-09 11:21] VITALS: BP 118/71; PULSE 57; O2SAT 99
[2023-11-09 11:27] VITALS: BP 118/71; PULSE 70; O2SAT 98
[2023-11-09 15:55] VITALS: BP 118/61
--- NOTE | 2023-11-09 16:44 | CM ---
diabetes clinical manager reviewed patient's chart and met with patient and spouse at bedside. Patient resides at [facility], plan is for skilled placement however patient will need to participate with physical therapy for skilled placement.
Plan; To follow up with patient progress with physical therapy.
[2023-11-09] MEDS: LIPITOR 40 MG PO (17:29)
[2023-11-09] MEDS: LOVENOX 40 MG SC (17:29)
[2023-11-09] MEDS: ARICEPT 10 MG PO (21:35)
[2023-11-09] MEDS: SEROQUEL 100 MG PO (21:35)
[2023-11-09] MEDS: ASPIR LOW (ENTERIC COATED) 81 MG PO (21:35)
[2023-11-09] MEDS: FLOMAX 0.400000000000000022 MG PO (21:36)
[2023-11-09] MEDS: PEPCID 40 MG PO (21:36)
[2023-11-09] MEDS: NAMENDA XR 28 MG PO (21:36)
[2023-11-09 23:29] VITALS: BP 127/77
[2023-11-10 07:46] VITALS: BP 131/79
[2023-11-10] MEDS: LOPRESSOR 12.5 MG PO ×2 (07:53→21:52)
[2023-11-10] MEDS: SEROQUEL 50 MG PO (07:53)
[2023-11-10] MEDS: AMOXIL 500 MG PO ×3 (07:53→23:10)
[2023-11-10] MEDS: ULORIC 40 MG PO (07:54)
--- NOTE | 2023-11-10 10:55 | W.PN.HOSP.TC ---
Addendum entered and electronically signed by Waldemar Cano MD 11/10/23 14:36:
Patient seen and examined
Discussed with resident and case management
Impression/plan:
77 years old male with advanced dementia likely senile type presented with metabolic encephalopathy which was multifactorial due to UTI with Enterococcus, influenza A, and acute kidney injury.
All improved.
Patient to complete total 5-day course of amoxicillin for UTI.
Completed Tamiflu.
Renal function improved with hydration and patient with now stable oral intake.
Plan is to assess with physical therapy with disposition determination. Given advanced dementia may require long-term placement.
Original Note:
Today's Communication/Plan
-
Awaiting PT evaluation today
[facility] to [facility] facility
Assessment / Plan
Assessment / Plan
Assessment/Plan:
#UTI
Urine culture positive for Enterococcus faecalis
Start Amoxicillin x 5 days (D5)
#Influenza Virus
-Positive Influenza A
-Completed tamiflu
-Acetaminophen as needed for fever
-Monitor Vitals
Acute on Chronic Metabolic Encephalopathy 2/2 to infection and underlying Dementia
-Continue current Seroquel regimen
-Improved
-back to baseline
-Continue to monitor
-PT evaluation
-Placement to prison facility will be required
#JIM, most likely prerenal
-Cre improved on IVF
-resolved
-Monitor BMP
#Dysphagia
-Diet Adjustment
-Aspiration precautions.
Code Status: Full Code
DVT ppx: Lovenox
DC ready, CM aware
Anticipated Discharge: Within 24 hours
Subjective/Interval History
-
Date of Service: November 10, 2023
Objective Data
-
Vital Signs:
Vital Signs
Temp Pulse Resp BP Pulse Ox
98.0 F 62 16 131/79 94
11/10/23 07:46 11/10/23 07:53 11/10/23 07:46 11/10/23 07:53 11/10/23 08:00
I&O
11/09/23 11/10/23 11/11/23
06:59 06:59 06:59
Intake Total 720 / 720
Balance 720 / 720
Physical Exam
-
General: Well Developed and No Apparent Distress
HEENT: Normocephalic and Atraumatic
Respiratory: Clear to Auscultation
Cardiac: Regular Rhythm and S1/S2; Negative Murmur or Rub
GI: Soft, Nontender and Nondistended
Musculoskeletal: No Clubbing, No Cyanosis and No Edema
Psych: Apparent Dementia
--- NOTE | 2023-11-10 13:45 | CM ---
Patient was able to ambulate with physical therapy, call placed to [facility]orn Ahmadi to review patient progress.
Plan; Skilled placement.
--- NOTE | 2023-11-10 14:17 | PTCARENOTE ---
Pt more cooperative with care. Can exhibit some anxious behaviors at times, such as guarding, but is able to cooperate when actions are explained and pt is talked through the care. Pleasantly confused at rest.
[2023-11-10 15:52] VITALS: BP 117/65
[2023-11-10] MEDS: LOVENOX 40 MG SC (17:05)
[2023-11-10] MEDS: LIPITOR 40 MG PO (17:05)
[2023-11-10] MEDS: SEROQUEL 100 MG PO (21:50)
[2023-11-10] MEDS: NAMENDA XR 28 MG PO (21:51)
[2023-11-10] MEDS: FLOMAX 0.400000000000000022 MG PO (21:51)
[2023-11-10] MEDS: ARICEPT 10 MG PO (21:51)
[2023-11-10] MEDS: ASPIR LOW (ENTERIC COATED) 81 MG PO (21:51)
[2023-11-10] MEDS: PEPCID 40 MG PO (21:52)
[2023-11-10 22:54] VITALS: BP 125/68
[2023-11-11 07:30] VITALS: BP 123/70
--- NOTE | 2023-11-11 08:12 | PN.CDI ---
CDI
- -
CDI:
Physician Documentation Request
Admit Date: 11/03/23 14:29
Dear Doctor Rachael,
Patient admitted with Influenza A and UTI.
11/07 Nursing skin assessment, 'Stage 1 sacral pressure injury.'
Physician documentation of the type and location of wounds is required for compliant documentation. Based on the above clinical findings and your assessment, please provide the following in your progress note:
Type (etiology) of ulcer/wound:
- Pressure (decubitus) ulcer
- Other
- Unable to determine
For a pressure ulcer, please also include the stage* of the ulcer:
- Stage 1 - Skin intact, non-blanchable redness
- Stage 2 - Partial thickness loss of dermis, includes intact or open blister
- Stage 3 - Full thickness tissue not including bone, tendon or muscle
- Stage 4 - Full thickness tissue loss, including exposed bone, tendon or muscle
- Unstageable - Full thickness loss in which the base of the ulcer is covered by slough (yellow, henriquez, sena, green or brown) and/or eschar (henriquez, brown or black) in the wound bed.
- Unable to determine
Use of terms such as suspected, likely, concern for, or probable (associated with a specific diagnosis that is being evaluated, monitored, or treated as if it exists) are acceptable and can be coded in the inpatient setting, when documented at the
time of discharge.
Thank you,
Jennifer KEITA,RN,CCDS
CDI Specialist
Available via [place] text
Please use your independent medical judgment in providing your response.
*Source: National Pressure Ulcer Advisory Panel (NPUAP)
--- NOTE | 2023-11-11 08:34 | PN.CDI ---
CDI
- -
CDI:
Physician Documentation Request
Admit Date: 11/03/23 14:29
Dear Doctor Rachael,
Patient admitted with Influenza A and UTI.
11/09 PN, '77 years old male with advanced dementia likely senile type...'
11/07 PCN , 'He is combative upon physical movement with cleaning and position changes, but is redirectable and pleasantly confused at rest. '
Based on the above, please clarify in the Progress Notes and Discharge Summary which, if any of the following, is the most likely etiology of the confusion/altered mental status:
Dementia with behavioral disturbances ( aggressive, combative or violent behavior).
Dementia only
Other
Use of terms such as suspected, likely, concern for, or probable (associated with a specific diagnosis that is being evaluated, monitored, or treated as if it exists) are acceptable and can be coded in the inpatient setting, when documented at the
time of discharge.
Thank you,
Jennifer KEITA,RN,CCDS
CDI Specialist
Available via [place] text
Please use your independent medical judgment in providing your response.
[2023-11-11] MEDS: AMOXIL 500 MG PO (09:03)
[2023-11-11] MEDS: SEROQUEL 50 MG PO (09:03)
[2023-11-11] MEDS: ULORIC 40 MG PO (09:04)
[2023-11-11] MEDS: LOPRESSOR 12.5 MG PO (09:04)
--- NOTE | 2023-11-11 10:40 | W.PN.HOSP.TC ---
Addendum entered and electronically signed by Waldemar Cano MD 11/26/23 15:16:
Dementia with behavioral disturbances.
Stage 1 sacral pressure injury.
Addendum entered and electronically signed by Waledmar Cano MD 11/11/23 14:47:
Patient seen and examined
Reviewed with resident including discharge planning
Impression/plan
Enterococcal UTI.
Patient completed 5-day course of treatment
Afebrile
Continue Flomax
Influenza A
Stable respiratory status
Completed Tamiflu acute
JIM improved with IV hydration
No evidence for retention
Alzheimer's dementia
Continue preadmission regimen
Placement to residential facility for rehab.
Original Note:
Today's Communication/Plan
-
D/C today.
Assessment / Plan
Assessment / Plan
Assessment/Plan:
#UTI
Urine culture positive for Enterococcus faecalis
Patient to complete total 5-day course of amoxicillin for UTI.
#Influenza Virus
-Positive Influenza A
-Completed tamiflu
-Acetaminophen as needed for fever
-Monitor Vitals
Acute on Chronic Metabolic Encephalopathy 2/2 to infection and underlying Dementia
-Continue current Seroquel regimen
-Improved
-back to baseline
-Continue to monitor
-PT evaluation
-Placement to residential facility will be required
#JIM, most likely prerenal
-Cre improved on IVF
-resolved
-Monitor BMP
#Dysphagia
-Diet Adjustment
-Aspiration precautions.
Code Status: Full Code
DVT ppx: Lovenox
DC ready, CM aware
Anticipated Discharge: 24 - 48 hours
Subjective/Interval History
-
Date of Service: November 11, 2023
Objective Data
-
Vital Signs:
Vital Signs
Temp Pulse Resp BP Pulse Ox
97.5 F 57 18 123/70 95
11/11/23 07:30 11/11/23 07:30 11/11/23 07:30 11/11/23 07:30 11/11/23 07:30
I&O
11/10/23 11/11/23 11/12/23
06:59 06:59 06:59
Intake Total 720 / 720 500 / 500
Balance 720 / 720 500 / 500
Physical Exam
-
General: Well Developed and No Apparent Distress
HEENT: Normocephalic and Atraumatic
Respiratory: Clear to Auscultation; Negative Wheezes
Cardiac: Regular Rhythm and S1/S2
GI: Soft, Nontender and Nondistended
Musculoskeletal: No Clubbing, No Cyanosis and No Edema
Neuro: Awake
Psych: Apparent Dementia
--- NOTE | 2023-11-11 12:01 | CM ---
Addendum entered by Mona Quinonez 11/11/23 14:47:
IMM reviewed and signed by spouse.
Original Note:
Bed available at [facility] for today.
PT got patient OOB to chair.
Plan: [facility]
Ambulance transport forms on chart.
[facility] 2nd floor.
P# [phone]
F# [phone]
--- NOTE | 2023-11-11 13:07 | W.DCSUMMARY ---
Documented by User: Connie Alicia MD, Resident 11/11/23 13:25
Discharge Summary
Discharge Data
Date of Admission: 11/03/23
Date of Discharge: 11/11/23
-
Pending Results: No
Hospital Course
DISCHARGE DIAGNOSIS:
1. Acute on Chronic Metabolic Encephalopathy secondary to infection and underlying Dementia
BRIEF HOSPITAL COURSE: This is a 77-year-old male with a PMH of dementia with sleep disturbance and migraines who presented to ED from [facility] with report of 'talking less,' worsened confusion, and requiring increased
assistance with ADLs. Information from [facility] staff reports patient's baseline is mild confusion but he has had worsening confusion, agitation and dysarthria. Hence he was sent to the ED for evaluation. On presentation to the ED, patient was
in no acute distress. CT scan evaluation in the ED showed no acute abnormality. While he was in the ER, he attempted to climb out of bed, fell and hit the left side of his forehead on the ground. There was presence of skin laceration. Repeat
evaluation with CT scan showed no acute abnormality, no intracranial hemorrhage but some small hematoma. Neurology was consulted for assessment and it was determined he most likely was experiencing advancing Alzheimer's disease with some mild
amounts of behavioral agitation. No significant metabolic abnormalities observed. He was continued on his Quetiapine dosage of 100mg at night with increase to 50mg of Quetiapine during the day. During the course of his hospital stay, he developed a
UTI, and also tested positive for Influenza A virus. He was treated with Tamiflu for his influenza symptoms, and completed a total 5-day course of amoxicillin for UTI with both conditions resolving.
On the day of discharge, Temperature: 97.5, BP: 123/70, Pulse:57, O2 Sat 95% on Room air.
Physical Examination: The patient is awake in no acute distress. S1/S2 present with regular rate and rhythm. Lungs are clear to auscultation. Abdomen is soft, nontender, nondistended. Extremities show no peripheral edema.
Discharge Plan
-
Patient Disposition: Group Home/SNF
Discharge Diagnosis/Procedures: Acute on Chronic Metabolic Encephalopathy secondary to infection and underlying Dementia
Condition: Fair
Diet: As tolerated
Driving Restrictions: No driving
Referrals:
Long Polanco MD [Family Provider] - in four to six weeks
Prescriptions:
Continued
famotidine [Pepcid] 40 mg Tablet
40 mg PO HS
loratadine [Claritin] 10 mg Tablet
10 mg PO DAILY
febuxostat [Uloric] 40 mg Tablet
40 mg PO DAILY
Namzaric 28-10 mg Capsule,Sprinkle,Er 24hr
1 cap PO HS
cyanocobalamin (vitamin B-12) 500 mcg Tablet
500 mcg PO DAILY
tamsulosin 0.4 mg capsule
0.4 mg PO HS
aspirin 81 mg Tablet,Delayed Release (Dr/Ec)
81 mg PO HS
quetiapine 25 mg Tablet
25 mg PO DAILY
acetaminophen [Tylenol] 325 mg Tablet
650 mg PO Q4HPRN PRN (Reason: mild pain/fever)
quetiapine 100 mg Tablet
100 mg PO HS
lorazepam 0.5 mg Tablet
0.5 mg PO Q8HPRN PRN (Reason: anxiety/restlessness)
metoprolol tartrate 25 mg tablet
12.5 mg PO BID@0900,2100
FiberCon 625 mg Tablet
1,250 mg PO DAILY
epinephrine 0.3 mg/0.3 mL Syringe
0.3 mg IM DAILY PRN (Reason: allergies)
Discharge Orders:
Discharge Patient (As Directed); Ordered 11/11/23
Ordered By: Connie Alicia

Documented by User: Waldemar Cano MD 11/11/23 14:45
Discharge Summary
Discharge Data
Date of Admission: 11/03/23
Date of Discharge: 11/11/23
Discharge Plan
-
Patient Disposition: Group Home/SNF
Discharge Diagnosis/Procedures: Acute on Chronic Metabolic Encephalopathy secondary to infection and underlying Dementia
Condition: Fair
Diet: As tolerated
Driving Restrictions: No driving
Referrals:
Long Polanco MD [Family Provider] - in four to six weeks
Prescriptions:
Continued
famotidine [Pepcid] 40 mg Tablet
40 mg PO HS
loratadine [Claritin] 10 mg Tablet
10 mg PO DAILY
febuxostat [Uloric] 40 mg Tablet
40 mg PO DAILY
Namzaric 28-10 mg Capsule,Sprinkle,Er 24hr
1 cap PO HS
cyanocobalamin (vitamin B-12) 500 mcg Tablet
500 mcg PO DAILY
tamsulosin 0.4 mg capsule
0.4 mg PO HS
aspirin 81 mg Tablet,Delayed Release (Dr/Ec)
81 mg PO HS
quetiapine 25 mg Tablet
25 mg PO DAILY
acetaminophen [Tylenol] 325 mg Tablet
650 mg PO Q4HPRN PRN (Reason: mild pain/fever)
quetiapine 100 mg Tablet
100 mg PO HS
lorazepam 0.5 mg Tablet
0.5 mg PO Q8HPRN PRN (Reason: anxiety/restlessness)
metoprolol tartrate 25 mg tablet
12.5 mg PO BID@0900,2100
FiberCon 625 mg Tablet
1,250 mg PO DAILY
epinephrine 0.3 mg/0.3 mL Syringe
0.3 mg IM DAILY PRN (Reason: allergies)
Discharge Orders:
Discharge Patient (As Directed); Ordered 11/11/23
Ordered By: Connie Alicia
[2023-11-11 16:15] VITALS: BP 121/61
== END 2023-11-11 17:54 | DRG 193 ==
LOC: 4 WEST ACU 14:29
PROVIDERS: Family Medicine; Internal Medicine; Nurse Practitioner Gerontology; Physician Assistant; Student in an Organized Health Care Education/Training Program; ADMITTING PHYSICIAN Internal Medicine; ATTENDING PHYSICIAN Internal Medicine; EMERGENCY PHYSICIAN Student in an Organized Health Care Education/Training Program; FAMILY PHYSICIAN Family Medicine; OTHER PHYSICIAN Student in an Organized Health Care Education/Training Program
DX: J10.1 Influenza due to other identified influenza virus with other respiratory manifestations (principal); G93.41 Metabolic encephalopathy; F02.818 Dementia in other diseases classified elsewhere, unspecified severity, with other behavioral disturbance; F02.83 Dementia in other diseases classified elsewhere, unspecified severity, with mood disturbance; N17.9 Acute kidney failure, unspecified; D61.818 Other pancytopenia; N39.0 Urinary tract infection, site not specified; I10 Essential (primary) hypertension; Z79.82 Long term (current) use of aspirin; Z11.52 Encounter for screening for COVID-19
CPT/HCPCS: 12013; 70450; 72125; 80048; 80053; 80061; 81003; 81015; 82550; 82570; 82607; 82728; 82746; 83036; 83605; 84145; 84300; 84443; 84484; 85025; 85027; 86803; 87040; 87070; 87077; 87086; 87186; 87502; 87811; 92526; 92610; 93005; 97163; 97167; 97530; 97535; 99285

== ENCOUNTER → 2023-11-13 10:44 | Outpatient (REF) | payer MEDICARE, BC, OTHER, SELFPAY ==
[2023-11-13 11:09] LABS: Hematocrit 39.1 % (39.0-52.0); Hemoglobin 12.8 g/dL (13.0-18.0); Mean Corp Hgb Conc. 32.7 g/dL (33.0-37.0); Mean Corpuscular Hgb 28.8 pg (27.0-31.0); Mean Corpuscular Volume 87.9 fL (80.0-94.0); Mean Platelet Volume 10.5 fL (7.4-10.4); Platelet Count 291 10^3/uL (130-400); Red Blood Cell Count 4.45 10^6/uL (4.70-6.10); Red Cell Dist. Width 13.6 % (11.5-14.5); White Blood Cell Count 7.1 10^3/uL (4.8-10.8)
[2023-11-13 11:27] LABS: Blood Urea Nitrogen 20 mg/dl (9-20); Calcium 9.2 mg/dl (8.4-10.2); Carbon Dioxide 30 mmol/L (22-30); Chloride 101 mmol/L (98-107); Glucose 82 mg/dl (70-99); Potassium 4.8 mmol/L (3.5-5.1); Sodium 142 mmol/L (135-145); eGFR 57.29
== END ==
LOC: OLABP 10:44
PROVIDERS: ATTENDING PHYSICIAN Family Medicine
DX: J10.1 Influenza due to other identified influenza virus with other respiratory manifestations (principal); N17.9 Acute kidney failure, unspecified; R41.82 Altered mental status, unspecified; R13.10 Dysphagia, unspecified; M62.81 Muscle weakness (generalized); F03.90 Unspecified dementia, unspecified severity, without behavioral disturbance, psychotic disturbance, mood disturbance, and anxiety; N39.0 Urinary tract infection, site not specified; B95.2 Enterococcus as the cause of diseases classified elsewhere; A40.1 Sepsis due to streptococcus, group B
CPT/HCPCS: 36415; 80048; 85027